=== PATIENT | female | born 1955 | race Caucasian/White ===

== ENCOUNTER → 2017-04-29 | Outpatient (CLI) | payer BC ==
[2017-04-29 12:12] LABS: ALT 115 U/L (9-52); AST 89 U/L (14-36); Alkaline Phosphatase 191 U/L (38-126); Anion Gap 9 mmol/L; Blood Urea Nitrogen 11 mg/dL (7-17); Calcium 10.3 mg/dL (8.4-10.2); Carbon Dioxide 24 mmol/L (22-30); Chloride 109 mmol/L (98-107); Glucose 106 mg/dL (74-99); Non-African American GFR(MDRD) >60 (>60 ml/min/1.73 sqM); Potassium 4.6 mmol/L (3.5-5.1); Sodium 142 mmol/L (137-145); Total Bilirubin 0.5 mg/dL (0.2-1.3); Total Protein 7.4 g/dL (6.3-8.2)
== END | disposition home or self-care (01) ==
LOC: LABWHC1 11:32
PROVIDERS: ATTEND Internal Medicine Endocrinology, Diabetes & Metabolism
DX: E21.0 Primary hyperparathyroidism (principal)
CPT/HCPCS: 36415; 80053; 82306; 83970; 84443

== ENCOUNTER → 2017-05-03 | Outpatient (CLI) | payer BC ==
--- NOTE | 2017-05-03 12:02 | US ---
EXAMINATION TYPE: US thyroid st tissue head/neck DATE OF EXAM: 05/03/2017 COMPARISON: NONE CLINICAL HISTORY: E21.0 HYPERPARATHYROIDISM. GLAND SIZE: Right Lobe: 4.3 x 1.7 x 1.8 cm Overall Parenchyma: homogenous Left Lobe: 4.7 x 1.9 x 1.7 cm Overall Parenchyma: heterogeneous Isthmus Thickness: 0.4 cm NODULES RIGHT: # of nodules measured on right: 2 1. 0.6 X 0.5 x 0.3 cm hypoechoic solid nodule at the upper pole with well-defined margins. This no dule is wider than tall and shows no intranodular vascularity. Prior size: no prior US 2. 0.7 X 0.5 x 0.3 cm hypoechoic solid nodule at the upper mid pole with well-defined margins. This nodule is wider than tall and shows no intranodular vascularity. LEFT: # of nodules measured on left: largest one of multiple 1. 1.3 X 1.0 x 0.8 cm hypoechoic solid nodule at the mid medial pole with poorly defined margins. This nodule is wider than tall and shows no intranodular vascularity. ISTHMUS: # of nodules measured in the isthmus: 0 Bilateral neck scanned, no evidence of lymphadenopathy. Possible parathyroid nodules noted right inferiorly = 0.8 x 0.5 x 0.5cm and at left seen inferiorly 0 .7 x 0.4 x 0.5cm. Thyroid gland is normal in size and heterogeneous in appearance. There are few small nodules scattere d throughout right thyroid lobe. There are several small nodules scattered throughout left thyroid lo be. There is a dominant somewhat ill-defined heterogeneous hypoechoic solid nodule posteriorly mid po le level left thyroid measuring 1.3 x 1.0 x 0.8 cm that is taller greater than wide. Technologist notes 2 subcentimeter round hypoechoic lesions inferior to thyroid gland could reflect b enign lymph nodes, too small to further characterize. IMPRESSION: There is heterogeneous nonenlarged thyroid with multiple small nodules, there is dominant ill-defined 1.3 cm hypoechoic solid nodule left thyroid lobe noted that may warrant further workup. No convincin g evidence for single parathyroid adenoma. Nonspecific subcentimeter nodules inferior to thyroid glan d. Consider nuclear medicine correlation.
== END | disposition home or self-care (01) ==
LOC: RADUSWWP 11:05
PROVIDERS: ATTEND Internal Medicine Endocrinology, Diabetes & Metabolism
DX: E04.2 Nontoxic multinodular goiter (principal); E21.0 Primary hyperparathyroidism
CPT/HCPCS: 76536

== ENCOUNTER → 2017-07-02 | Outpatient (CLI) | payer BC ==
[2017-07-02 13:24] LABS: ALT 59 U/L (9-52); AST 37 U/L (14-36); Alkaline Phosphatase 155 U/L (38-126); Anion Gap 10 mmol/L; Blood Urea Nitrogen 11 mg/dL (7-17); Calcium 9.9 mg/dL (8.4-10.2); Carbon Dioxide 26 mmol/L (22-30); Chloride 107 mmol/L (98-107); Glucose 96 mg/dL (74-99); Non-African American GFR(MDRD) >60 (>60 ml/min/1.73 sqM); Potassium 4.1 mmol/L (3.5-5.1); Sodium 143 mmol/L (137-145); Total Bilirubin 0.2 mg/dL (0.2-1.3)
== END | disposition home or self-care (01) ==
LOC: LABWHC1 12:16
PROVIDERS: ATTEND Internal Medicine Endocrinology, Diabetes & Metabolism
DX: E21.0 Primary hyperparathyroidism (principal)
CPT/HCPCS: 36415; 80053; 82306; 83970

== ENCOUNTER → 2018-05-18 | Outpatient (CLI) | payer BC | END | disposition home or self-care (01) | LOC: LABWHC1 16:11 | PROVIDERS: ATTEND Orthopaedic Surgery | DX: Z01.812 Encounter for preprocedural laboratory examination (principal) | CPT/HCPCS: 87070 ==

== ENCOUNTER → 2018-06-04 | Outpatient (CLI) | payer BC | END | disposition home or self-care (01) | LOC: LABWHC1 14:00 | PROVIDERS: ATTEND Orthopaedic Surgery | DX: Z01.812 Encounter for preprocedural laboratory examination (principal) | CPT/HCPCS: 36415; 86850; 86900; 86901 ==

== ENCOUNTER → 2018-06-06 | Outpatient (CLI) | payer BC ==
[2018-06-06 17:24] LABS: Appearance,Urine Clear (Clear); Bilirubin,Urine Negative (Negative); Blood,Urine Negative (Negative); Color,Urine Colorless; Glucose,Urine (UA) Negative (Negative); Ketones,Urine Negative (Negative); Leukocyte Esterase,Urine Negative (Negative); Nitrite,Urine Negative (Negative); PH, Urine 5.5 (5.0-8.0); Protein,Urine Negative (Negative); Specific Gravity,Urine 1.004 (1.001-1.035); Urobilinogen,Urine <2.0 mg/dL (<2.0)
[2018-06-06 17:27] LABS: HCT 38.4 % (34.0-46.0); HGB 13.1 gm/dL (11.4-16.0); MCH 30.3 pg (25.0-35.0); MCHC 34.1 g/dL (31.0-37.0); MCV 88.9 fL (80.0-100.0); Mean Platelet Volume 8.3; Platelet Count 246 k/uL (150-450); RBC 4.32 m/uL (3.80-5.40); RDW 13.4 % (11.5-15.5); WBC 8.4 k/uL (3.8-10.6)
[2018-06-06 17:39] LABS: Partial Thromboplastin Time 22.9 sec (22.0-30.0); Prothrombin Time 9.9 sec (9.0-12.0)
[2018-06-06 17:44] LABS: ALT 60 U/L (9-52); AST 43 U/L (14-36); Albumin 4.2 g/dL (3.5-5.0); Alkaline Phosphatase 163 U/L (38-126); Anion Gap 14 mmol/L; Blood Urea Nitrogen 11 mg/dL (7-17); Calcium 10.6 mg/dL (8.4-10.2); Carbon Dioxide 24 mmol/L (22-30); Chloride 105 mmol/L (98-107); Glucose 111 mg/dL (74-99); Potassium 3.8 mmol/L (3.5-5.1); Sodium 143 mmol/L (137-145); Total Bilirubin 0.2 mg/dL (0.2-1.3); Total Protein 6.8 g/dL (6.3-8.2)
== END | disposition home or self-care (01) ==
LOC: LABPAT 06-04 09:53
PROVIDERS: ATTEND Orthopaedic Surgery
DX: Z01.812 Encounter for preprocedural laboratory examination (principal)
CPT/HCPCS: 80053; 81003; 85027; 85610; 85730

== ENCOUNTER 2018-06-14 07:55 | Inpatient (IN) | payer BC ==
[2018-06-06 15:26] VITALS: BMI 39.3
[~2018-06-14 07:55] MED LIST: ACETAMINOPHEN TAB 500 MG TAB PO ONE; DEXAMETHASONE SOD PHOSPHATE 10 MG/ML 1 ML VIAL IV ONE; MELOXICAM 7.5 MG TAB PO ONE; MIDAZOLAM 2 MG/2 ML VIAL IV PRN; ONDANSETRON 4 MG/2 ML VIAL IVP ONE; ROPIVACAINE 246.25 MG, EPINEPHrine 0.5 MG, KETOROLAC 30 MG, cloNIDine HCL/PF 80 MCG, WA... MISCELLANE ONE; TRANEXAMIC ACID 1,000 MG in SODIUM CHLORIDE 0.9% 50 ML IVPB ONE; ceFAZolin IN SWFI 2 GM/20 ML SYRINGE IVP ONE; fentaNYL (PF) 50 MCG/ML 2 ML AMP IV PRN
[2018-06-14] MEDS: LACTATED RINGERS 1,000 ML IV SCH ×2 (08:44→21:06)
[2018-06-14] MEDS ORDERED: LIDOCAINE 1% 20 ML VIAL (10MG/ML) FOR IV START INTRADERMA ONE (08:46)
[2018-06-14] MEDS ORDERED: SCOPOLAMINE 1.5MG/72HR PATCH TRANSDERM ONE (08:58)
[2018-06-14] MEDS ORDERED: HYDROmorphone 1 MG/ML 1 ML SYRINGE IVP PRN (09:16)
[2018-06-14] MEDS ORDERED: NALOXONE 0.4 MG/ML 1 ML VIAL IV PRN (09:16)
[2018-06-14] MEDS ORDERED: DIAZEPAM 5 MG TAB PO PRN ×2 (09:16)
[2018-06-14] MEDS ORDERED: MAGNESIUM HYDROXIDE 2,400 MG/10 ML CUP PO PRN (09:16)
[2018-06-14] MEDS ORDERED: HYDROmorphone 0.5 MG/0.5 ML SYRINGE IVP PRN ×2 (09:16)
[2018-06-14] MEDS ORDERED: ONDANSETRON 4 MG/2 ML VIAL IVP PRN (09:16)
[2018-06-14] MEDS ORDERED: hydrOXYzine PAMOATE 25 MG CAP PO PRN (09:16)
[2018-06-14] MEDS ORDERED: HYDROcodone/APAP 5-325MG 1 EACH TAB PO PRN ×2 (09:16)
[2018-06-14] MEDS ORDERED: HEPARIN SODIUM,PORCINE 10,000 UNIT/ML 1 ML VIAL ONE (09:54)
[2018-06-14] MEDS ORDERED: SODIUM CHLORIDE 0.9% IRRIG 1,000 ML BTL IRRIGATION ONE (09:54)
[2018-06-14] MEDS ORDERED: ceFAZolin 3,000 MG in SODIUM CHLORIDE 0.9% IRRIGATIO 3,000 ML IRRIGATION ONE (10:33)
[2018-06-14] MEDS ORDERED: LACTATED RINGERS 1,000 ML IV ONE ×3 (11:10→15:30)
--- NOTE | 2018-06-14 11:51 | P.OP ---
Date of Procedure: 06/14/18 Preoperative Diagnosis: Severe osteoarthritis left hip Postoperative Diagnosis: Severe osteoarthritis left hip Procedure(s) Performed: Left total hip arthroplasty with a direct anterior approach Implants: Dewitt and nephew Polarstem size 2 standard Dewitt [employer] Nephew R3, 3 hole acetabular shell, 48 mm [employer]itt [employer]hew reflection 6.5 mm cancellus screw, 20 mm 2 Dewitt [employer]hew R3, XLPE 20 acetabular liner Dewitt [employer] Nephew Oxinium femoral head 32 m, -3 All components were press-fit. The articulation is Oxinium on polyethylene. Anesthesia: GETA, spinal Surgeon: Edmond Frederick Carpet Sewing Machine Operator #1: Danna Platt Estimated Blood Loss (ml): 200 (67 mL returned with Cell Saver) Pathology: other (Femoral head) Condition: stable Disposition: PACU Indications for Procedure: After failure of conservative treatment we discussed the surgical and nonsurgical treatment options at length. Patient wishes to proceed with a total hip arthroplasty with a direct anterior approach. Complications specific to this procedure were discussed at length, including but not limited to infection, leg length discrepancy, dislocation, and nerve injury. Patient is aware of all these complications and informed consent was obtained Operative Findings: The operative findings are consistent with severe osteoarthritis of the left hip Description of Procedure: Patient was seen and evaluated in the preoperative area, consent was reviewed, and the surgical site was marked with a skin marker. Patient was then brought to the operating room and given prophylactic antibiotics intravenously. 1 g of Tranexamic acid was also given. A spinal anesthetic was administered by the anesthesia department. The patient was then placed on the Wheeler table with the bony prominences well-padded. The hip area was then prepped and draped in usual sterile fashion. A universal timeout was then performed, which confirmed the patient's name, surgical site, ALLERGIES, and procedure being performed. Next the incision site was located at 1 cm distal and 1 cm lateral to the anterior superior iliac spine. At this time the patient was able to feel the incision, so a general anesthetic was then given. The skin and subcutaneous tissues were sharply incised. Incision was carefully dissected down to the fascia overlying the tensor fascia nito muscle. This fascia was then incised in line with the incision. Next, using blunt finger dissection, the tensor fascia nito muscle was dissected off its investing fascia. The muscle was then carefully retracted laterally with a cobra retractor over the lateral neck of the femur. Next, the circumflex vessels were identified and cauterized using the AquaMantis device. The anterior hip capsule was then exposed. The capsule was then opened and an inverted T fashion. Cobra retractors were then placed intracapsularly. The proximal femur was then visualized. The femoral neck was then osteotomized appropriate level above the lesser trochanter. Small amount of traction was placed with the Wheeler table. A small wedge of bone was then removed from the remaining femoral head. Next, using a corkscrew femoral head was easily removed from the acetabulum. On gross visual inspection, the femoral head had complete loss of articular cartilage in multiple periarticular osteophytes. Attention was then turned to the acetabulum. the acetabulum was exposed and any remaining labrum was excised. Sequential reaming of the acetabulum was performed using fluoroscopic guidance. When the appropriate size was reached, a trial was then placed. The position and fit of the trial was checked with fluoroscopy. The trial was then removed. Then, using fluoroscopic guidance, the final implant was impacted at 20 of anteversion and 40 of abduction, and fully seated in the acetabulum. 2 screws were then placed in the acetabulum. Again fluoroscopy was used to check position of the screws. Next, the liner was then impacted, with a 20 elevated liner located in the anterior superior quadrant. Component locking was confirmed. Attention was then directed to the femur. With the aid of the Wheeler table, the femur was externally rotated to approximately 130, extended, and abducted under the opposite leg. A side hook was then placed under the proximal femur, and the side hook elevator was used to elevate the proximal femur. Retractors were then placed. A capsular release was performed, as well as a release of the conjoined tendon, which afforded excellent visualization of the proximal femur. Next, a box osteotome was used to lateralize the proximal femur. A hand shaker was then used to locate the femoral canal. Sequential broaching was then performed with appropriate size which afforded excellent fixation in the proximal femur. A trial was then placed with appropriate head and neck, and the hip was gently reduced with the aid of the Wheeler table. Fluoroscopy was then used to check position of the components, as well as to ensure equal leg lengths. The hip was then gently dislocated and the trials were then removed. Final implants were then impacted and the hip was again reduced. Final fluoroscopic x-rays confirmed that the components were in anatomic position, as well as equal leg lengths. The hip was also taken through range of motion, and found to be stable. The hip was then copiously irrigated with antibiotic solution with pulsatile lavage. The hip was then irrigated with Irrisept solution. The soft tissues were then injected with a ropivacaine solution, which consisted of 246.25 mg of ropivacaine, 0.5 mg of epinephrine, 30 mg of Toradol, 80 g of clonidine, and 48.45 mL of sterile water, for a total of 100 mL of fluid injected. A second dose of 1 g of Tranexamic acid was also given. the fascia was then closed with 2-0 strata fix suture. The subcutaneous tissue was closed with 3-0 Vicryl. The subcuticular tissue was closed with 3-0 strata fix suture. The skin was then closed with Dermabond glue and a sterile silver dressing. The patient was then transferred to the recovery room in stable condition. The promotions assistant FABI Benson was required due to the complexity of surgery, and the need for skilled surgical elastic knitter hand frame for positioning, draping, exposure, retraction, and closure of the wound.
--- NOTE | 2018-06-14 11:57 | FL ---
EXAMINATION TYPE: FL guidance operating room, XR Hip Limited LT DATE OF EXAM: 06/14/2018 CLINICAL HISTORY: Left hip replacement. TECHNIQUE: Fluoroscopy. Intraoperative limited views left hip. COMPARISON: None. FINDINGS: Fluoroscopic guidance was provided during left hip replacement procedure performed by Dr. Frederick. A total of 59 seconds of fluoroscopic time was utilized during the procedure and 2 spot in traoperative images are acquired. Images acquired show metallic hardware from hip arthroplasty that is satisfactory in position on sing le frontal projection. IMPRESSION: As Above.
[2018-06-14] MEDS: HYDROmorphone 1 MG/ML 1 ML SYRINGE IVP ONE ×4 (12:05→12:58)
--- NOTE | 2018-06-14 12:23 | XR ---
Left hip HISTORY: Status post left hip arthroplasty Single frontal view of the left hip Patient is status post left hip arthroplasty. There is anatomic alignment. IMPRESSION: Orthopedic follow-up.
[2018-06-14] MEDS ORDERED: MEPERIDINE 50 MG/ML SYRINGE IVP ONE (13:46)
[2018-06-14] MEDS ORDERED: HYDROmorphone 1 MG/ML 1 ML SYRINGE IVP ONE (15:40)
[2018-06-14] MEDS: SODIUM CHLORIDE 0.9% 1,000 ML IV SCH (16:50)
[2018-06-14] MEDS: ceFAZolin IN SWFI 2 GM/20 ML SYRINGE IVP SCH (17:46)
--- NOTE | 2018-06-14 20:17 | CONS ---
CONSULTATION DATE OF SERVICE: 06/14/2018. REASON FOR CONSULTATION: Advice regarding hyperlipidemia and other medical issues requested by Dr. Frederick. HISTORY OF PRESENT ILLNESS: This 62-year-old woman with a past history of GERD, hyperlipidemia, DJD, history of bariatric surgery, cholecystectomy, cystectomy, who underwent left hip arthroplasty, is being closely monitored. There is no history of fever, rigors. No headache, loss of consciousness or seizures. The patient also has history of lap band removal, bunionectomy and EGD also. PAST MEDICAL HISTORY: GERD, hyperlipidemia, DJD, history of lap band surgery. MEDICATIONS: Home medications are: 1. Trazodone 150 mg p.o. daily. 2. Effexor 75 mg p.o. daily. 3. Omeprazole 40 mg p.o. b.i.d. 4. [place]-3 fatty acids. 5. Multivitamins. 6. Lovastatin 20 mg q.h.s. 7. Ibuprofen 800 mg t.i.d. 8. Vitamin B12 500 mcg p.o. daily. 9. Aspirin 81 mg p.o. daily. ALLERGIES: None. FAMILY HISTORY: History of cancer in the family. SOCIAL HISTORY: No history of smoking, no history of alcohol. REVIEW OF SYSTEMS: ENT: No diminished hearing or vision. CARDIOVASCULAR: No angina. RESPIRATORY: No cough or hemoptysis. GI: No nausea, vomiting. : No dysuria. NERVOUS SYSTEM: No numbness or weakness. ALLERGY/IMMUNOLOGY: No asthma. MUSCULOSKELETAL: As mentioned earlier. HEMATOLOGY/ONCOLOGY: No history of anemia. ENDOCRINE: No history of diabetes or hypothyroidism. CONSTITUTIONAL: As mentioned. DERMATOLOGY: Negative. RHEUMATOLOGY: Negative. PSYCHIATRY: As mentioned earlier. PHYSICAL EXAMINATION: Alert, oriented x3. Pulse 80, blood pressure 92, respiratory 16, temperature 98.2, pulse ox 94% on room air. HEENT: Conjunctivae normal. NECK: No jugular venous distention. No carotid bruit. No lymph node enlargement. CARDIOVASCULAR: S1, S2. RESPIRATORY: Breath sounds diminished in the bases. No rhonchi, no crackles. ABDOMEN: Soft, nontender. No mass palpable. LEGS: No edema, no swelling. Status post surgery. NERVOUS SYSTEM: Higher function mentioned earlier. Moves all four limbs. No focal motor deficits. LYMPHATICS: No lymphadenopathy in the neck, axillae, groin. SKIN: No ulcer, rash, bleeding. LAB INVESTIGATIONS: Not available at this time. ASSESSMENT: 1. Status post left total hip joint arthroplasty. 2. History of hyperlipidemia. 3. Degenerative joint disease. 4. Gastroesophageal reflux disease. 5. History of bariatric surgery. 6. History of bunionectomy. 7. History of depression. RECOMMENDATION: This 62-year-old woman who presented after surgery at this time I would recommend continue the current medications, home medications, DVT prophylaxis, incentive spirometry and recommend close follow up with the primary physician in the outpatient setting. Aspirin may be restarted. Hold ibuprofen and will follow the patient closely with you. Thank you, Dr. Frederick, for letting us participate in this patient. The patient is started on aspirin for DVT prophylaxis per Orthopedic Surgery. MMODL / IJN: [id number] /
[2018-06-14] MEDS ORDERED: ATORVASTATIN 10 MG TAB PO SCH (21:00)
[2018-06-14] MEDS ORDERED: SENNOSIDES-DOCUSATE SODIUM 1 EACH TAB PO SCH (21:00)
[2018-06-14] MEDS: ASPIRIN 325 MG TAB PO SCH (21:09)
[2018-06-14] MEDS: PANTOPRAZOLE 40 MG TABLET PO SCH (21:09)
[2018-06-15] MEDS ORDERED: HYDROcodone/APAP 5-325MG 1 EACH TAB ONE (01:31)
[2018-06-15] MEDS: ceFAZolin IN SWFI 2 GM/20 ML SYRINGE IVP SCH (04:15)
[2018-06-15] MEDS: SODIUM CHLORIDE 0.9% 1,000 ML IV SCH (04:15)
[2018-06-15 04:41] VITALS: BP 120/59; PULSE 98; RESP 16; TEMP 98.4
[2018-06-15 07:15] LABS: Basophils % (A) 0 %; Eosinophils # (A) 0.1 k/uL (0-0.7); Eosinophils % (A) 1 %; HCT 32.4 % (34.0-46.0); HGB 10.3 gm/dL (11.4-16.0); Lymphocytes # (A) 2.5 k/uL (1.0-4.8); Lymphocytes % (A) 30 %; MCH 29.3 pg (25.0-35.0); MCHC 31.8 g/dL (31.0-37.0); Monocytes # (A) 0.7 k/uL (0-1.0); Monocytes % (A) 9 %; Neutrophils # (A) 4.9 k/uL (1.3-7.7); Neutrophils % (A) 60 %; Platelet Count 208 k/uL (150-450); RBC 3.52 m/uL (3.80-5.40); RDW 13.4 % (11.5-15.5); WBC 8.3 k/uL (3.8-10.6)
--- NOTE | 2018-06-15 08:22 | P.DS ---
Providers Date of admission: 06/14/18 07:55 Expected date of discharge: 06/15/18 Attending physician: Edmond Frederick Consults: 06/14/18 09:16 Consult Physician Routine Consulting Provider: Vikas Vargas Consult Reason/Comments: medical management Do you want consulting provider notified?: Yes 06/14/18 16:45 Consult Physician Routine Consulting Provider: Dao Diana Consult Reason/Comments: medical managment Do you want consulting provider notified?: Yes Primary care physician: Vikas Vargas - Discharge Diagnosis(es) (1) Primary osteoarthritis of left hip Current Visit: Yes Status: Acute (2) S/P total hip arthroplasty Current Visit: Yes Status: Acute Hospital Course: This is a 62-year-old female with known history of degenerative arthritis of the left hip. The patient presents for evaluation. After discussion and consideration patient elects to proceed with total hip arthroplasty. The patient is seen preoperatively by Dr. Frederick and medically cleared for surgery by their primary care physician. Patient is admitted to [facility] on 06/14/2018 for total hip arthroplasty. The procedures performed without complication or sequelae. The patient is doing well postoperatively. Labs and vital signs are stable on day of discharge. On day of discharge patient's hip incision is healing well. There is minimal erythema. There is no drainage noted at this time. There is minimal soft tissue swelling to the hip and thigh. Patient has full foot and ankle motion without difficulty or pain. Neurovascular status to the left lower extremity is intact. Patient is discharged home in good condition. Please see med rec for accurate list of home medications. Plan - Discharge Summary Discharge Rx Participant: No New Discharge Prescriptions: New Aspirin 325 mg PO BID #60 tab HYDROcodone/APAP 5-325MG [[place] 5-325] 1 - 2 tab PO Q4-6H PRN #45 tab PRN Reason: Pain Ibuprofen [Motrin] 1 tab PO Q8H PRN #90 tab PRN Reason: Pain Sennosides [Senokot] 1 tab PO BID #60 tablet No Action Multivitamins, Thera [Multivitamin] 1 tab PO DAILY Cyanocobalamin [Vitamin B-12] 500 mcg PO DAILY Lovastatin [Mevacor] 20 mg PO HS traZODone HCL 150 mg PO DAILY [place]-3 Fatty Acids/Fish Oil [Fish Oil 1,000 mg Softgel] 1 cap PO DAILY Aspirin [Adult Low Dose Aspirin EC] 81 mg PO DAILY Ibuprofen 800 mg PO TID Omeprazole 40 mg PO BID Venlafaxine HCl [Effexor XR] 75 mg PO DAILY Discharge Medication List Aspirin [Adult Low Dose Aspirin EC] 81 mg PO DAILY 04/22/16 [History] Cyanocobalamin [Vitamin B-12] 500 mcg PO DAILY 04/22/16 [History] Lovastatin [Mevacor] 20 mg PO HS 04/22/16 [History] Multivitamins, Thera [Multivitamin] 1 tab PO DAILY 04/22/16 [History] [place]-3 Fatty Acids/Fish Oil [Fish Oil 1,000 mg Softgel] 1 cap PO DAILY [History] traZODone HCL 150 mg PO DAILY 04/22/16 [History] Ibuprofen 800 mg PO TID 06/06/18 [History] Omeprazole 40 mg PO BID 06/06/18 [History] Venlafaxine HCl [Effexor XR] 75 mg PO DAILY 06/14/18 [History] Aspirin 325 mg PO BID #60 tab 06/15/18 [Rx] HYDROcodone/APAP 5-325MG [[place] 5-325] 1 - 2 tab PO Q4-6H PRN #45 tab 06/15/18 [ Rx] Ibuprofen [Motrin] 1 tab PO Q8H PRN #90 tab 06/15/18 [Rx] Sennosides [Senokot] 1 tab PO BID #60 tablet 06/15/18 [Rx] Follow up Appointment(s)/Referral(s): Edmond Frederick DO [Doctor of Osteopathic Medicine] - 2 Weeks Activity/Diet/Wound Care/Special Instructions: Weightbearing as tolerated with walker Leave dressing intact. Dressing may be removed by home care nurse in 10 days. May shower with dressing on. Follow-up with [facility] in 2 weeks, please call with any questions or concerns [phone]
[2018-06-15] MEDS: ASPIRIN 325 MG TAB PO SCH (08:46)
[2018-06-15] MEDS: PANTOPRAZOLE 40 MG TABLET PO SCH (08:46)
[2018-06-15] MEDS ORDERED: MELOXICAM 7.5 MG TAB PO SCH (09:00)
[2018-06-15] MEDS ORDERED: VENLAFAXINE HCL ER 75 MG CAP PO SCH (09:00)
[2018-06-15] MEDS ORDERED: traZODone HCL 50 MG TAB PO SCH (09:00)
[2018-06-15] MEDS ORDERED: MULTIVITAMINS, THERA 1 EACH TAB PO SCH (12:00)
[2018-06-15] MEDS ORDERED: CYANOCOBALAMIN 500 MCG TAB PO SCH (12:00)
== END 2018-06-15 10:17 | disposition home health service (06) | DRG 470 ==
LOC: 2ORMAIN 07:55 → 3SUR 11:50
PROVIDERS: ADMIT Orthopaedic Surgery; ATTEND Orthopaedic Surgery
PROC: 30233N0 Transfusion of Autologous Red Blood Cells into Peripheral Vein, Percutaneous Approach (ICD-10-PCS; 2018-06-14)
PROC: 0SRB06A Replacement of Left Hip Joint with Oxidized Zirconium on Polyethylene Synthetic Substitute, Uncemented, Open Approach (ICD-10-PCS; principal; 2018-06-14 09:20)
DX: M16.12 Unilateral primary osteoarthritis, left hip (principal); E78.5 Hyperlipidemia, unspecified; K21.9 Gastro-esophageal reflux disease without esophagitis; F32.9 Major depressive disorder, single episode, unspecified; K44.9 Diaphragmatic hernia without obstruction or gangrene; F41.9 Anxiety disorder, unspecified; Z79.899 Other long term (current) drug therapy; Z79.82 Long term (current) use of aspirin; Z90.49 Acquired absence of other specified parts of digestive tract; Z98.84 Bariatric surgery status; Z90.6 Acquired absence of other parts of urinary tract; Z80.9 Family history of malignant neoplasm, unspecified
CPT/HCPCS: 36415; 73501; 85025; 86850; 86891; 86900; 86901; 88300

== ENCOUNTER → 2019-05-12 | Outpatient (CLI) | payer MEDICARE, OTHER ==
--- NOTE | 2019-05-12 10:05 | US ---
EXAMINATION TYPE: US thyroid st tissue head/neck DATE OF EXAM: 05/12/2019 COMPARISON: 05/03/2017 CLINICAL HISTORY: E21.0 Primary hyperparathyroidism. GLAND SIZE: Right Lobe: 4.6 X 2.2 X 1.9 cm Overall Parenchyma: homogenous Left Lobe: 4.8 X 1.7 X 1.9 cm Overall Parenchyma: homogeneous Isthmus Thickness: 0.3 cm NODULES RIGHT: # of nodules measured on right: 1 1. 0.6 X 0.4 x 0.5 cm hypoechoic cystic nodule at the upper pole with well-defined margins; . This nodule is wider than tall and shows . Prior size: 0.6 x 0.5 x 0.3 cm LEFT: # of nodules measured on left: 3 1. 0.5 X 0.3 x 0.6 cm hypoechoic mixed nodule at the upper pole with well-defined margins; . This nodule is wider than tall and shows no intranodular vascularity. Prior size: No prior measurement although subtle nodules are seen in the left on the prior exam. 2. 0.4 X 0.2 x 0.4 cm hypoechoic solid nodule at the mid pole with well-defined margins; . This nod ule is wider than tall and shows intranodular vascularity. Prior size: No prior measurement although subtle nodules are seen in the left on the prior exam. 3. 0.5 X 0.4 x 0.6 cm hypoechoic solid nodule at the mid pole with well-defined margins; . This nod ule is wider than tall and shows intranodular vascularity. Prior size: No prior measurement although subtle nodules are seen in the left on the prior exam. The ill-defined 1.3 cm thyroid nodule on the exam of 05/03/2017 does not persist on today's exam. ISTHMUS: # of nodules measured in the isthmus: 0 Bilateral neck scanned, no evidence of lymphadenopathy. IMPRESSION: Similar size of the right subcentimeter thyroid nodule with multiple left thyroid nodules retrospecti vely seen on the prior exam and currently subcentimeter in size. The prior 1.3 cm ill-defined nodule on the left on the exam of 05/03/2017 does not persist on today's exam.
== END ==
LOC: RADUSWWP 08:59
PROVIDERS: ATTEND Internal Medicine Endocrinology, Diabetes & Metabolism
DX: E04.2 Nontoxic multinodular goiter (principal)
CPT/HCPCS: 76536

== ENCOUNTER → 2020-05-10 | Outpatient (CLI) | payer MEDICARE, OTHER ==
--- NOTE | 2020-05-10 13:43 | MR ---
EXAMINATION TYPE: MR knee LT wo con DATE OF EXAM: 05/10/2020 COMPARISON: None HISTORY: Left Knee Pain, Pain behind the Knee and Around Kneecap TECHNIQUE: Multiplanar, multisequence imaging of the left knee is performed without IV contrast. FINDINGS: MEDIAL MENISCUS: Anterior and posterior horns are intact without tear. LATERAL MENISCUS: Anterior and posterior horns are intact without tear. CRUCIATE LIGAMENTS: The anterior and posterior cruciate ligaments are intact and unremarkable. COLLATERAL LIGAMENTS: The medial collateral ligament and lateral collateral ligament complex are inta ct and unremarkable. EXTENSOR MECHANISM: Visualized quadriceps and patellar tendons are intact. EFFUSION: Minimal joint effusion. POPLITEAL CYST: No popliteal/luna cyst. TRICOMPARTMENT SPACES: Joint space loss is present at the patellofemoral joint. CARTILAGE: Grade IV chondromalacia present at the posterior patella. There is subchondral geode forma tion present at the posterior aspect of the lateral compartment and also at the tibiofibular joint barajas ggesting underlying arthropathy BONE MARROW SIGNAL: There is abnormal increased signal on T2-weighted sequences, low signal on T1-josemanuel ghted sequences extending along the medial metaphysis of the proximal tibia extending laterally, line ar low signal is present in this region consistent with nondisplaced fracture lines, there is likely microtrabecular fracture present. Associated edema. OTHER: No additional significant abnormality is appreciated. IMPRESSION: Nondisplaced fracture suspected along the proximal tibia medially. Chondromalacia patella. No evident meniscal tear
== END | disposition home or self-care (01) ==
LOC: RADMRIMAIN 07:34
PROVIDERS: ATTEND Orthopaedic Surgery
DX: M22.42 Chondromalacia patellae, left knee (principal)

== ENCOUNTER → 2020-07-04 | Outpatient (CLI) | payer MEDICARE, OTHER ==
--- NOTE | 2020-07-08 09:53 | MM ---
Reason for exam: screening (asymptomatic). History: Patient is postmenopausal and is nulliparous. Retro-pectoral saline implants in both breasts, 2012. Took estrogen for 2 years. Took progesterone for 2 years. Physical Findings: A clinical breast exam by your physician is recommended on an annual basis and results should be correlated with mammographic findings. MG 3D Screen Mammo Imp/Cad Bilateral CC, MLO, and ID view(s) were taken. Prior study comparison: October 11, 2018, mammogram, performed at [facility]. July 06, 2016, mammogram, performed at [facility]. The breast tissue is heterogeneously dense. This may lower the sensitivity of mammography. There is chronic nodularity bilaterally. Deformity right breast implant. Correlate for implant injury. ASSESSMENT: Incomplete: need additional imaging evaluation, BI-RAD 0 RECOMMENDATION: Special view mammogram of the left breast. If lesion persists on supplemental views, image directed ultrasound is recommended. [facility] will attempt to contact patient to return for supplemental views and ultrasound if indicated.
== END | disposition home or self-care (01) ==
LOC: RADMAMWWP 13:00
PROVIDERS: ATTEND Obstetrics & Gynecology
DX: Z12.31 Encounter for screening mammogram for malignant neoplasm of breast (principal)
CPT/HCPCS: 77063; 77067

== ENCOUNTER → 2020-07-19 | Outpatient (CLI) | payer MEDICARE, OTHER ==
--- NOTE | 2020-07-19 10:49 | MM ---
Reason for exam: additional evaluation requested from abnormal screening. Last mammogram was performed less than 1 month ago. History: Patient is postmenopausal and is nulliparous. Retro-pectoral saline implants in both breasts, 2012. Took estrogen for 2 years. Took progesterone for 2 years. Physical Findings: Nurse did not find any significant physical abnormalities on exam. MG 3D Work Up W/Cad W/Imp LT CC with magnification, ML with magnification, and ML view(s) were taken of the left breast. Prior study comparison: July 04, 2020, bilateral MG 3d screen mammo imp/cad. October 11, 2018, mammogram, performed at [facility]. The breast tissue is heterogeneously dense. This may lower the sensitivity of mammography. Finding: There are indeterminate calcifications in the upper quadrant, posterior, central position of the left breast. These results were verbally communicated with the patient and result sheet given to the patient on 07/19/20. ASSESSMENT: Suspicious, BI-RAD 4 RECOMMENDATION: Stereotactic core biopsy of the left breast. Called Dr. Wylie's office with mammographic findings and has scheduled an appointment for the patient for 08/29/20 at 8:[address] Esparza. Biopsy scheduled for 08/09/20 at 10:00. PRELIMINARY REPORT CALLED AND FAXED TO DR. ESPARZA ON 07/19/20.
== END | disposition home or self-care (01) ==
LOC: RADMAMWWP 09:09
PROVIDERS: ATTEND Obstetrics & Gynecology
DX: R92.8 Other abnormal and inconclusive findings on diagnostic imaging of breast (principal)
CPT/HCPCS: 77065; G0279; 77061; 77066

== ENCOUNTER → 2020-08-09 | Day surgery (SDC) | payer MEDICARE, OTHER ==
[2020-08-09 09:29] VITALS: RESP 16; TEMP 97.7
[2020-08-09 11:43] VITALS: BP 133/81; PULSE 64
--- NOTE | 2020-08-09 15:17 | MM ---
EXAMINATION TYPE: MG stereo VAD BX LT DATE OF EXAM: 08/09/2020 COMPARISON: Prior mammogram 07/19/2020 CLINICAL HISTORY: Abnormal mammogram TECHNIQUE: Stereotactic guided core biopsy of left breast. FINDINGS: The procedure of stereotactic guided core biopsy was explained to the patient. Benefits, alternatives, and risks were discussed. An informed consent was then obtained. The shortness pathway for biopsy was chosen. Shortness pathway was superior to inferior approach. I performed the procedure. A vacuum assisted biopsy gun was used to obtain multiple core samples. The patient tolerated the procedure well without any immediate complication. The patient was kept in the radiology department for short stay after the procedure and then discharged home in stable condition. Targeted calcifications are identified in specimen mammogram. Post biopsy digital mammogram shows the clip to appear in satisfactory position relative to the targeted area of concern on the preprocedure images. IMPRESSION: SUCCESSFUL, UNCOMPLICATED STEREOTACTIC GUIDED CORE BIOPSY OF AREA OF CONCERN IN THE left BREAST, FULL PATHOLOGY RESULTS TO FOLLOW. Pathology Results: Benign LEFT BREAST, NEEDLE CORE BIOPSY: Sclerotic breast parenchyma with focal intraductal calcifications and some features of senescent fibroadenoma. Recommendation Follow up mammogram of the left breast in 6 months. LORNA
== END ==
LOC: RADMAMWWP 09:11
PROVIDERS: ATTEND Surgery
DX: D24.2 Benign neoplasm of left breast (principal)
CPT/HCPCS: 88305; 19081; A4648; J2001

== ENCOUNTER → 2020-12-23 | Outpatient (CLI) | payer MEDICARE, OTHER ==
--- NOTE | 2020-12-23 14:14 | CT ---
EXAMINATION TYPE: CT ankle LT wo con DATE OF EXAM: 12/23/2020 COMPARISON: None HISTORY: Left foot and ankle pain. CT DLP: 198.[address] of the left ankle with reconstruction imaging. TECHNIQUE: Unenhanced CT of the left ankle was performed with bone and soft tissue window settings barajas bmitted in the axial coronal and sagittal planes. At a separate workstation 3-D TR imaging was obtai vadim. FINDINGS: I do not see evidence for fracture or dislocation. Tibiotalar joint space narrowing noted with mild early subchondral cyst formation medial portion of the talus. Visualized ligamentous and te ndinous structures are intact. Mild cystic degenerative changes of the midfoot. IMPRESSION: 1. Mild osteoarthritis tibiotalar joint space.
== END | disposition home or self-care (01) ==
LOC: RADCTMAIN 13:25
PROVIDERS: ATTEND Podiatrist
DX: M19.072 Primary osteoarthritis, left ankle and foot (principal)

== ENCOUNTER → 2021-03-24 | Outpatient (CLI) | payer MEDICARE, OTHER ==
--- NOTE | 2021-03-24 11:40 | BD ---
EXAMINATION TYPE: Axial Bone Density DATE OF EXAM: 03/24/2021 COMPARISON: NONE CLINICAL HISTORY: 65 YR OLD FEMALE.....ICD-10 CODE: M85.9 OSTEOPENIA Height: 61.8 Weight: 196 FRAX RISK QUESTIONS: History of Fracture in Adulthood: YES 5. Chronic liver disease: FATTY LIVER RISK FACTORS HISTORY OF: RT ELBOW, LAST YR History of Wrist Fracture: RT WRIST, LAST YR Surgery to ...LT HIP...THR 2018 Diet low in dairy products/other sources of calcium: YES Postmenopausal woman: YES, AT AGE 45 YRS OLD Take estrogen and/or progesterone medications: YES IN THE PAST FOR ABOUT 1 YR Hyperparathyroidism: YES, CACLIUM LEVELS ARE OFF Adrenal Insufficiency: NO MEDICATIONS: Additional Medications: VENLAFAXINE, TRAZONE, REFLUX MEDS, STATIN FOR CHOLESTEROL, VIT D Additional History: CALCIUM LEVELS HIGH, REFLUX, CALCIUM.... EXAM MEASUREMENTS: Bone mineral densitometry was performed using the [employer] System. Bone mineral density as measured about the Lumbar spine is: ----- L1-L4(G/cm2): 1.100 T Score Values are as follows: ----- L1: -0.9 ----- L2: -1.5 ----- L3: -0.2 ----- L4: -0.2 ----- L1-L4: -0.7 Bone mineral density FIRST BONE DENSITY AT MCP Bone mineral density about the R hip (g/cm2): 0.960 T Score values are as follows: -----R Neck: -1.1 -----R Total: -0.8 Bone mineral density FIRST BONE DENSITY AT [facility] RAX%s: THERE IS A 12.9% CHANCE FOR A MAJOR OSTEOPOROTIC FX AND A 1.1% FOR HIP......PROBABILITY FOR FX IN 10 YRS TIME IMPRESSION: Osteopenia NOTE: T-SCORE=SD OF THE YOUNG ADULT MEAN.
== END | disposition home or self-care (01) ==
LOC: RADBDWWP 09:17
PROVIDERS: ATTEND Obstetrics & Gynecology
DX: M85.80 Other specified disorders of bone density and structure, unspecified site (principal)
CPT/HCPCS: 77080

== ENCOUNTER → 2021-03-24 | Outpatient (CLI) | payer MEDICARE, OTHER ==
--- NOTE | 2021-03-24 10:40 | MM ---
Reason for exam: follow-up at short interval from prior study. Last mammogram was performed 8 months ago. History: Patient is postmenopausal and is nulliparous. Benign MG stereo VAD BX LT of the left breast, August 09, 2020. Retro-pectoral saline implants in both breasts, 2011. Took estrogen for 2 years. Took progesterone for 2 years. Physical Findings: Nurse did not find any significant physical abnormalities on exam. MG 3D Diag Mammo Imp W/Cad LT CC, MLO, and ID view(s) were taken of the left breast. Prior study comparison: July 19, 2020, left breast MG work up alen w/imp w/CAD L. July 04, 2020, bilateral MG 3d screen mammo imp/cad. The breast tissue is heterogeneously dense. This may lower the sensitivity of mammography. Previous mammotome biopsy in the left breast. Breast implant intact. No significant new findings when compared with previous films. These results were verbally communicated with the patient and result sheet given to the patient on 03/24/21. ASSESSMENT: Benign, BI-RAD 2 RECOMMENDATION: Return to routine screening mammogram schedule for both breasts. Back on schedule.
== END | disposition home or self-care (01) ==
LOC: RADMAMWWP 09:15
PROVIDERS: ATTEND Surgery
DX: R92.8 Other abnormal and inconclusive findings on diagnostic imaging of breast (principal)
CPT/HCPCS: 77065; G0279; 77061

== ENCOUNTER → 2021-06-17 | Outpatient (CLI) | payer MEDICARE, OTHER ==
[2021-06-17 09:22] LABS: Basophils # (A) 0.1 k/uL (0-0.2); Basophils % (A) 1 %; Eosinophils # (A) 0.2 k/uL (0-0.7); Eosinophils % (A) 3 %; HCT 41.8 % (34.0-46.0); HGB 13.4 gm/dL (11.4-16.0); Lymphocytes % (A) 40 %; MCH 30.3 pg (25.0-35.0); MCV 94.6 fL (80.0-100.0); Mean Platelet Volume 8.2; Monocytes # (A) 0.4 k/uL (0-1.0); Monocytes % (A) 6 %; Neutrophils # (A) 3.6 k/uL (1.3-7.7); Neutrophils % (A) 49 %; Platelet Count 243 k/uL (150-450); RBC 4.42 m/uL (3.80-5.40); RDW 12.9 % (11.5-15.5); WBC 7.4 k/uL (3.8-10.6)
--- NOTE | 2021-06-17 09:34 | CT ---
EXAMINATION TYPE: CT hip LT wo con DATE OF EXAM: 06/17/2021 COMPARISON: 06/14/2018 plain film HISTORY: Pain in left hip CT DLP: 550.10 mGycm Automated exposure control for dose reduction was used. Contrast: None Technique: Axial images 3 mm thick sections. Reconstructed images in the coronal and sagittal planes. 3-D reconstructed images are performed by the technologist on a separate computer. FINDINGS: There is left hip prosthesis causing beam hardening artifact. This will cause some limitation on eval uation. No acute fractures are evident. Femoral prosthesis articulates with the acetabular component. Some mi d to inferior lucency is adjacent to the acetabular component. Loosening should be considered. Consid er bone scan for additional evaluation. IMPRESSION: 1. THERE IS SOME LUCENCY ADJACENT TO THE MID TO INFERIOR ACETABULUM. LOOSENING IS NOT EXCLUDED. CONSI MARIA ESTHER BONE SCAN FOR ADDITIONAL EVALUATION
[2021-06-17 10:41] LABS: Erythrocyte Sedimentation Rate 18 mm/hr (0-20)
== END | disposition home or self-care (01) ==
LOC: RADCTMAIN 08:21
PROVIDERS: ATTEND Orthopaedic Surgery
DX: M25.552 Pain in left hip (principal)
CPT/HCPCS: 36415; 85025; 85652; 86140

== ENCOUNTER → 2021-12-03 | Outpatient (CLI) | payer MEDICARE, OTHER ==
--- NOTE | 2021-12-03 14:05 | NM ---
EXAMINATION TYPE: NM bone/joint limited DATE OF EXAM: 12/03/2021 COMPARISON: Correlation CT 06/17/2021 HISTORY: 66-year-old female M2 5.552, left hip pain, worsening for the last month. Fall in March 2021. Left hip surgery 3.5 years ago. TECHNIQUE: After the intravenous administration of 23.0 mCi Tc 99m MDP. Images acquired 3 hours pos t injection. Multiple views of the pelvis are submitted. FINDINGS: Nonspecific mild increased activity about the acetabular cup component of the patient's left hip tota l arthroplasty. There is some focal increased activity involving the lower lumbar spine on the right. No abnormal increased activity along the left femoral stem component of the arthroplasty. IMPRESSION: 1. Status post left hip total arthroplasty. There is mild nonspecific increased activity along the ac etabular cup component. No abnormal activity along the femoral stem component. 2. Degenerative tracer activity in the lower lumbar spine towards the right.
== END | disposition home or self-care (01) ==
LOC: RADNMMAIN 10:00
PROVIDERS: ATTEND Orthopaedic Surgery
DX: Z09 Encounter for follow-up examination after completed treatment for conditions other than malignant neoplasm (principal); M25.552 Pain in left hip; E78.5 Hyperlipidemia, unspecified; Z96.642 Presence of left artificial hip joint
CPT/HCPCS: 78300; A9503

== ENCOUNTER → 2021-12-05 | Outpatient (CLI) | payer MEDICARE, OTHER ==
[2021-12-05 10:29] LABS: Ionized Calcium 5.7 mg/dL (4.5-5.3)
[2021-12-05 14:46] LABS: Basophils # (A) 0.05 X 10*3/uL (0.00-0.10); Eosinophils # (A) 0.16 X 10*3/uL (0.04-0.35); Eosinophils % (A) 3.1 %; HCT 42.3 % (37.2-46.3); HGB 13.6 g/dL (12.0-15.0); Lymphocytes # (A) 2.36 X 10*3/uL (0.90-5.00); Lymphocytes % (A) 45.5 %; MCH 29.6 pg (27.0-32.0); MCHC 32.2 g/dL (32.0-37.0); MCV 92.2 fL (80.0-97.0); Monocytes % (A) 7.7 %; Neutrophils % (A) 42.3 %; Platelet Count 256 X 10*3/uL (140-440); RBC 4.59 X 10*6/uL (4.10-5.20); WBC 5.19 X 10*3/uL (4.50-10.00)
[2021-12-05 16:37] LABS: ALT 32 U/L (8-44); AST 23 U/L (13-35); African American GFR (CKD) 81.9 (60.0-200.0); Albumin 4.5 g/dL (3.8-4.9); Albumin/Globulin Ratio 2.04 (1.60-3.17); Alkaline Phosphatase 138 U/L (41-126); BUN/Creat Ratio 16.41 Ratio (12.00-20.00); Blood Urea Nitrogen 13.9 mg/dL (9.0-27.0); Calcium 10.5 mg/dL (8.7-10.3); Carbon Dioxide 23.2 mmol/L (20.0-27.5); Chloride 106 mmol/L (96-109); Chol/HDL Ratio 3.96 Ratio; Globulin 2.2 g/dL (1.6-3.3); Glucose 106 mg/dL (70-110); LDL Cholesterol,Calculated 122.6 mg/dL (0.0-131.0); Non-African American GFR(CKD) 70.7 (60.0-200.0); Potassium 4.2 mmol/L (3.5-5.5); Sodium 141 mmol/L (135-145); Total Bilirubin <0.20 mg/dL (0.30-1.20); Total Protein 6.7 g/dL (6.2-8.2)
== END | disposition home or self-care (01) ==
LOC: LABWHC1 09:16
PROVIDERS: ATTEND Physician Assistant
DX: R74.8 Abnormal levels of other serum enzymes (principal); E83.52 Hypercalcemia
CPT/HCPCS: 36415; 80053; 80061; 82306; 82330; 83970; 85025

== ENCOUNTER → 2021-12-09 | Outpatient (CLI) | payer MEDICARE, OTHER | END | disposition home or self-care (01) | LOC: LABWHC1 07:20 | PROVIDERS: ATTEND Orthopaedic Surgery | DX: Z96.642 Presence of left artificial hip joint (principal); T84.84XA Pain due to internal orthopedic prosthetic devices, implants and grafts, initial encounter; Y82.9 Unspecified medical devices associated with adverse incidents | CPT/HCPCS: 36415; 85379; 85652; 86140 ==

== ENCOUNTER → 2022-04-20 | Outpatient (CLI) | payer MEDICARE, OTHER | END | disposition home or self-care (01) | LOC: LABPAT 10:06 | PROVIDERS: ATTEND Orthopaedic Surgery | DX: Z01.812 Encounter for preprocedural laboratory examination (principal); M16.12 Unilateral primary osteoarthritis, left hip | CPT/HCPCS: 80053; 81003; 85027; 85610; 85730; 86850; 86900; 86901; 87070; 93005 ==

== ENCOUNTER 2022-05-01 08:47 | Day surgery (SDC) | payer MEDICARE, OTHER ==
[2022-04-20 12:11] LABS: Appearance,Urine Clear (Clear); Bilirubin,Urine Negative (Negative); Blood,Urine Negative (Negative); Color,Urine Colorless; Glucose,Urine (UA) Negative (Negative); Ketones,Urine Negative (Negative); Leukocyte Esterase,Urine Negative (Negative); Nitrite,Urine Negative (Negative); Protein,Urine Negative (Negative); Specific Gravity,Urine 1.004 (1.001-1.035); Urobilinogen,Urine <2.0 mg/dL (<2.0)
[2022-04-20 12:26] LABS: INR 0.9 (<1.2); Partial Thromboplastin Time 22.7 sec (22.0-30.0); Prothrombin Time 9.7 sec (9.0-12.0)
[2022-04-20 18:42] LABS: HCT 39.4 % (37.2-46.3); HGB 12.3 g/dL (12.0-15.0); MCH 29.3 pg (27.0-32.0); MCHC 31.2 g/dL (32.0-37.0); MCV 93.8 fL (80.0-97.0); Mean Platelet Volume 11.7 fL (9.5-12.2); NRBC Per 100 WBC 0 /100 WBCS (0.0-0.0); Platelet Count 205 X 10*3/uL (140-440); RDW 13.7 % (11.5-14.5)
[2022-04-20 23:11] LABS: African American GFR (CKD) 57.2 (60.0-200.0); Albumin/Globulin Ratio 1.57 (1.60-3.17); Anion Gap 10.5 mmol/L (10.00-18.00); BUN/Creat Ratio 16.84 Ratio (12.00-20.00); Blood Urea Nitrogen 19.2 mg/dL (9.0-27.0); Carbon Dioxide 26.7 mmol/L (20.0-27.5); Globulin 2.6 g/dL (1.6-3.3); Non-African American GFR(CKD) 49.4 (60.0-200.0); Potassium 4.7 mmol/L (3.5-5.5); Total Bilirubin 0.2 mg/dL (0.30-1.20); Total Protein 6.6 g/dL (6.2-8.2)
[2022-04-28 13:43] VITALS: BMI 35.6
[~2022-05-01 08:47] MED LIST changes: -ACETAMINOPHEN TAB 500 MG TAB PO ONE; +ACETAMINOPHEN TAB 500 MG TAB PO PRN; -DEXAMETHASONE SOD PHOSPHATE 10 MG/ML 1 ML VIAL IV ONE; +DEXAMETHASONE SOD PHOSPHATE 10 MG/ML 1 ML VIAL IV PRN; +DOCUSATE 100 MG CAP PO PRN; +FAMOTIDINE 20 MG/2 ML VIAL IVP PRN; +KETOROLAC 15 MG/ML 1 ML VIAL IVP PRN; +LACTATED RINGERS 1,000 ML IV SCH; -MELOXICAM 7.5 MG TAB PO ONE; -ONDANSETRON 4 MG/2 ML VIAL IVP ONE; +ONDANSETRON 4 MG/2 ML VIAL IVP PRN; -ROPIVACAINE 246.25 MG, EPINEPHrine 0.5 MG, KETOROLAC 30 MG, cloNIDine HCL/PF 80 MCG, WA... MISCELLANE ONE; -TRANEXAMIC ACID 1,000 MG in SODIUM CHLORIDE 0.9% 50 ML IVPB ONE; +TRANEXAMIC ACID IN NACL,ISO-OS 1,000 MG in SALINE 1 100ML.BAG IVPB PRN; -ceFAZolin IN SWFI 2 GM/20 ML SYRINGE IVP ONE; -fentaNYL (PF) 50 MCG/ML 2 ML AMP IV PRN; +oxyCODONE ER 10 MG TAB.ER.12H PO PRN
[2022-05-01] MEDS ORDERED: MIDAZOLAM 2 MG/2 ML VIAL IVP ONE (10:02)
--- NOTE | 2022-05-01 10:21 | P.ANPRN ---
Procedure Note - Anesthesia - Nerve Block Performed Left Erector Spinae Single Time Out Performed: Yes Date of Procedure: 05/01/22 Procedure Start Time: 10:02 Procedure Stop Time: 10:15 Location of Patient: PreOp Indication: Acute Post-Operative Pain, Requested by Surgeon Sedation Type: Sedate with meaningful contact maintained Preparation: Sterile Prep, Sterile Dressing Position: Prone Catheter: None Needle Types: Pajunk Needle Gauge: 20 Ultrasound used to visualize needle placement: Yes Ultrasound used to observe medication spread: Yes Injectate: 0.5% Ropivacaine (see comment for volume) (30 ml + decadron 4 mg) Blood Aspirated: No Pain Paresthesia on Injection Noted: No Resistance on Injection: Normal Image Stored and Saved: Yes Events: Uneventful and Well Tolerated
[2022-05-01] MEDS ORDERED: GLYCOPYRROLATE 0.2 MG/ML 2 ML VIAL ONE (10:24)
[2022-05-01] MEDS ORDERED: LIDOCAINE 2% INJ 20 MG/ML (2 ML VIAL) ONE (10:24)
[2022-05-01] MEDS ORDERED: TRANEXAMIC ACID IN NACL,ISO-OS 1,000 MG/100 ML BAG ONE (10:24)
[2022-05-01] MEDS ORDERED: ROPIVACAINE 5 MG/ML 30 ML VIAL ONE (10:24)
[2022-05-01] MEDS ORDERED: PROPOFOL 10 MG/ML 20 ML VIAL IV ONE (10:24)
[2022-05-01] MEDS ORDERED: DEXAMETHASONE SOD PHOSPHATE 4 MG/ML 1 ML VIAL ONE (10:24)
[2022-05-01] MEDS ORDERED: NEOSTIGMINE 1 MG/ML 10 ML VIAL ONE (10:24)
[2022-05-01] MEDS ORDERED: fentaNYL (PF) 50 MCG/ML 2 ML AMP ONE (10:24)
[2022-05-01] MEDS ORDERED: ROCURONIUM 10 MG/ML (5 ML VIAL) IV ONE (10:24)
[2022-05-01] MEDS: ROPIVACAINE/EPI/CLONIDINE/KET 50 ML SYRINGE MISCELLANE PRN ×2 (10:33→13:01)
[2022-05-01] MEDS ORDERED: LACTATED RINGERS 1,000 ML IV ONE ×2 (12:12→15:04)
[2022-05-01] MEDS ORDERED: VANCOMYCIN 1,000 MG VIAL MISCELLANE ONE (13:01)
--- NOTE | 2022-05-01 13:27 | XR ---
Fluoroscopy INDICATION: Pain FINDINGS: Fluoroscopy time: 33 seconds. Images obtained: 5. IMPRESSIONS: 1. Documentation of fluoroscopy.
[2022-05-01] MEDS ORDERED: hydrOXYzine pamoate 25 MG CAP PO PRN (14:11)
[2022-05-01] MEDS ORDERED: HYDROmorphone 0.5 MG/0.5 ML SYRINGE IVP PRN ×3 (14:11)
[2022-05-01] MEDS ORDERED: NALOXONE 0.4 MG/ML 1 ML VIAL IV PRN (14:11)
[2022-05-01] MEDS ORDERED: ONDANSETRON 4 MG/2 ML VIAL IVP PRN ×2 (14:11→20:40)
[2022-05-01] MEDS: HYDROmorphone 0.5 MG/0.5 ML SYRINGE IVP PRN ×2 (14:24→14:46)
--- NOTE | 2022-05-01 14:24 | P.OP ---
Date of Procedure: 05/01/22 Preoperative Diagnosis: 1. Painful left total hip arthroplasty etiology aseptic acetabular component loosening Postoperative Diagnosis: Same Procedure(s) Performed: 1. Revision left total hip arthroplasty (acetabular component revision) 2. Application of negative pressure wound VAC left hip (incisional wound VAC) less than 50 cm (20 cm) Implants: Ethel Trident II 52 mm multihole cup augmented with 5 screws Ethel dual mobility 42 mm outer diameter [employer] Oxinium 28 mm inner diameter head, -3 mm Anesthesia: GETA Surgeon: Sam Ttius Manager Psychiatry #1: Win Gaffney Estimated Blood Loss (ml): 150 IV fluids (ml): 1,200 Pathology: none sent Condition: stable Disposition: PACU Indications for Procedure: The patient is a very pleasant 66-year-old female with a medical history sign ificant for hyperparathyroidism (recently underwent parathyroidectomy) who underwent a left direct anterior total hip replacement by another surgeon in 2018. She initially did well but then developed progressively worsening left groin pain. Serial x-rays of the left hip were concerning for aseptic loosening as there was a radiolucent line in all 3 zones. She had a computed tomography scan which showed evidence of loosening. She also had a triple phase bone scan which showed signal in the acetabular cup. There is no uptake in the femur. She met with me to discuss revision surgery. Her clinical exam and presenting history along with her radiographic findings were all consistent with aseptic loosening of the acetabular component. We discussed revision surgery with revision of the acetabular cup. We also discussed that I would evaluate the stem for loosening and if it appeared loose would revise the stem as well. We had a long discussion on the potential risks and complications of surgery including but certainly not limited to risks from anesthesia, superficial infection, deep periprosthetic joint infection, aseptic loosening of the revision cup, dislocation, leg length discrepancy, damage to local blood vessels or nerves, delayed wound healing, continued or worsened pain, need for further surgery, dissatisfaction with surgical outcome, DVT, PE, other medical complications, and possibly loss of life or limb. The patient voiced her understanding of the potential applications and also acknowledges that other less common complications are possible. She also understands the increased risk of complication due to this being a revision. She provided both her verbal and written consent to go forward with surgery. Operative Findings: There was no sign of deep infection. After the hip was dislocated and the cup was inspected it appeared to be grossly loose. There was bony overgrowth circumferentially surrounding the cup, but when this was removed there was micromotion noted of the cup. After the cup was removed on inspection there was a small area of fibrous ingrowth superolaterally on the back surface of the cuff but otherwise there was minimal bony ingrowth. The femoral stem appeared stable. Description of Procedure: The patient was identified in preoperative holding and the correct left hip was marked with my initials. I reviewed the consent form with the patient and her and all their questions were answered. The patient was given a block by anesthesia. She was brought back to the operating room. A general anesthetic with full muscle relaxation was provided by anesthesia on the [facility]. Preoperative antibiotics and TXA were given. I evaluated the patient's leg lengths which appeared to be even. Boots for the Dian table were then applied and carefully padded. The patient was carefully transferred onto the [place] table. A perineal post was immediately placed. Both boots were attached to the spars. Nonsterile drapes were applied. Preoperative imaging was taken and an AP image of the pelvis was obtained that mass the standing AP taken in the office. The metallic bar was placed along the bottom of the ischium to use as an intraoperative reference. The left leg was then prepped and draped in the standard sterile fashion. Prior to surgery timeout was performed identifying the correct patient, operative extremity and procedure. The patient's left leg was then prepped and draped in the standard sterile fashion. I began by using the prior scar from previous direct anterior approach and extending it both proximally and distally. Dissection was carried down to subcutaneous fat with electrocautery. The fascia over the tensor muscle belly was identified and incised in line with the skin incision staying lateral to the ASIS. The tensor muscle belly was found to be scarred to the undersurface of the fascia consistent with this being a revision procedure. I carefully develop the interval looking for the avascular zone lateral to the sartorius and rectus muscle belly. Dissection was carried down to the anterior hip pseudocapsule. A Cobra retractor was placed superior to the femoral neck. I carefully develop the interval between the anterior musculature and hip capsule in a single pronged [place] retractor was placed over the anterior rim of the pelvis. A capsulectomy was then performed. There was minimal fluid in the joint and no purulence. The hip was circumferentially exposed. Longitudinal traction was applied to the Dian table in the femoral head was disengaged from the Spears taper using a bone tamp and a mallet. Using a bone hook the trunnion was dissociated from the femoral head with traction and external rotation. The trunnion was then placed posteriorly in a previously developed pocket. Traction was released and a Cobra retractor was used to carefully retract the trunnion. The femoral head was then removed. The acetabular component was then circumferentially exposed. The polyliner was carefully removed. The 2 screws were also removed from the cup. On gross inspection there appeared to be motion of the cup when it was grasped. There was some bony overgrowth which was removed. The cup was then circumferentially exposed with a pencil tipped bur. Osteotomes were used to fully disengage the cup from the underlying bone. The cup was easily removed. On inspection on the back table there is a small area of fibrous ingrowth but minimal bony ingrowth into the cup consistent with aseptic loosening. On inspection of the acetabular socket there was a thin anterior and posterior wall but no defects. There was no evidence of discontinuity. The underlying bone appeared sclerotic. The removed cup was a 48 mm cup. I then sequentially reamed starting with a 49 mm reamer up to a 51 mm reamer. There was circumferential bleeding bone. The anterior and posterior parmar while thin were still intact. A 52 mm multi hole cup was dispensed. I gently tapped the cup into place and guided the version and abduction with fluoroscopy. An excellent press fit was obtained and I was able to move the patient's whole pelvis with the insertion handle. 4 screws were placed to further augment the press-fit. The cup was found to be stable. Fluoroscopy was brought in to verify position. A dual mobility liner was then tapped into the socket and I verified it had fully engaged. At this point the proximal femur was exposed. The stem was circumferentially exposed and appeared to be well fixed. There is no motion. The trunnion appeared intact. A -3 mm inner diameter head and a 42 mm outer diameter head were tapped onto the trunnion engaging the Spears taper. The wound was thoroughly irrigated and the hip was c arefully reduced under visualization. The hip was stable to external rotation to 90. Final fluoroscopic images were taken. The wound was then thoroughly irrigated. A 3 minute soaked with dilute Betadine was performed. 3 L of sterile saline was then irrigated through the wound using pulsatile lavage. 2 g of vancomycin powder was placed deep at the level of the implant. A deep Hemovac drain was applied. The wound was then closed in layers. The skin incision was closed with a running 3-0 Monocryl subcuticular stitch and reinforced with 3-0 nylon interrupted vertical mattress. Due to this being a revision a Prevena incisional wound VAC was applied. I verified that all instrument, sponge, and sharp counts were correct. The patient was carefully transferred off of the [place] table. On her gurney. Leg lengths felt equal. The patient was brought to recovery having tolerated the procedure well. Win Gaffney PA-C was required as a skilled senior executive assistant due to the complexity of the surgery. Plan: The patient can weight-bear as tolerated on her left hip she received 2 doses of IV antibiotics. Due to this being a revision I would like her treated with 6 weeks of oral doxycycline for low-dose antibiotic suppression in line with recent orthopedic literature. She'll be treated with aspirin for DVT prophylaxis. Internal medicine for perioperative medical management. Her drain can be removed on her output is less then 100 mL's per shift. She will need follow-up in the office in 1 week for a wound check and Prevena wound VAC removal.
--- NOTE | 2022-05-01 14:33 | FL ---
Fluoroscopy HISTORY: Hip replacement 33 seconds fluoroscopy time supplied to the referring clinician. 8 intraoperative C-arm images docum ent the procedure. See dictated report from orthopedic surgery.
[2022-05-01] MEDS ORDERED: diphenhydrAMINE 50 MG/ML 1 ML VIAL IVP ONE (14:45)
[2022-05-01] MEDS: HYDROcodone/APAP 5-325MG 1 EACH TAB PO PRN (16:25)
[2022-05-01] MEDS: PANTOPRAZOLE 40 MG TABLET PO SCH (17:43)
--- NOTE | 2022-05-01 18:17 | CONS ---
CONSULTATION REASON FOR CONSULTATION: Advice regarding hyperlipidemia and other medical issues, requested by Orthopedic Surgery. HISTORY OF PRESENT ILLNESS: This 66-year-old woman with a past medical history of DJD and history of hyperlipidemia underwent revision of left total hip arthroplasty. There is no history of any fever, rigors or chills. No history of headache, loss of consciousness, seizures. Patient is complaining of occasional cough. PAST MEDICAL HISTORY: Hyperlipidemia, DJD, history of pneumonia. HOME MEDICATIONS: Reviewed. They include trazodone. Doses and the rest of the medications are noted. ALLERGIES: NONE. FAMILY HISTORY: History of lung cancer, liver cancer. SOCIAL HISTORY: No history of smoking. REVIEW OF SYSTEMS: Fourteen-point review of systems negative except as mentioned earlier. PHYSICAL EXAMINATION: Pulse is 78, blood pressure ntd, respirations 16, temperature normal. HEENT: Conjunctivae normal. NECK: No jugular venous distention. CARDIOVASCULAR: S1, S2 muffled. RESPIRATION: Breath sounds diminished at the bases. No rhonchi. No crackles. ABDOMEN: Soft. LEGS: Status post surgery. NERVOUS SYSTEM: No focal deficit. SKIN: No ulcer, rash, bleeding. JOINTS: No active deforming arthropathy. LABS: Reviewed. CBC within normal limits. Other labs are reviewed, ASSESSMENT: 1. Status post revision left total hip arthroplasty. 2. Hyperlipidemia. 3. History of pneumonia. 4. Gastroesophageal reflux disease. RECOMMENDATIONS AND DISCUSSION: In this 66-year-old woman who presented after surgery, at this time I recommend continuing with symptomatic treatment. Resume the home medications. DVT prophylaxis. Incentive spirometry. Will follow the patient closely with you. The rest of the recommendations per Orthopedic Surgery. Further recommendations to follow. MMODL / IJN: [id number] / MTDCrys
[2022-05-01] MEDS: ASPIRIN 81 MG PO SCH (20:46)
[2022-05-01] MEDS ORDERED: SENNOSIDES-DOCUSATE SODIUM 1 EACH TAB PO SCH (21:00)
[2022-05-01] MEDS ORDERED: ATORVASTATIN 10 MG TAB PO SCH (21:00)
[2022-05-01] MEDS ORDERED: traZODone HCL 50 MG TAB PO SCH (21:00)
[2022-05-02] MEDS: HYDROcodone/APAP 5-325MG 1 EACH TAB PO PRN ×3 (05:10→11:41)
[2022-05-02 07:45] VITALS: BP 99/61; PULSE 90; RESP 16; TEMP 98.6
--- NOTE | 2022-05-02 08:11 | P.PN ---
Subjective Progress Note Date: 05/02/22 Doing well. Some pain, but improved since yesterday. No other complaints this morning. Objective - Vital Signs Vital signs: Vital Signs Temp 98.6 F 05/02/22 07:45 Pulse 90 05/02/22 07:45 Resp 16 05/02/22 07:45 BP 99/61 05/02/22 07:45 Pulse Ox 95 05/02/22 07:45 FiO2 Intake & Output 05/01/22 05/02/22 05/02/22 18:59 06:59 18:59 Intake Total 2480 Output Total 150 80 Balance 2330 -80 Weight 90.8 kg Intake: IV 2000 Oral 480 Output: Drainage 80 Left Medial Hip 80 Estimated Blood Loss 150 Other: Voiding Method Toilet # Voids 0 3 # Bowel Movements 0 - Exam Resting comfortably. NAD. Left lower extremity: Incisional wound VAC in place with good seal. Hemovac drain in place. Thigh and calf are soft. Femoral and sciatic nerve function intact. Sensation is intact to light touch throughout the foot. - Labs CBC & Chem 7: 04/20/22 11:47 04/20/22 11:47 Assessment and Plan Assessment: Postoperative day #1 status post left revision hip arthroplasty, revision of aseptic loosening acetabular component Plan: 1. Weightbearing as tolerated left lower extremity with walker 2. DVT prophylaxis with aspirin 81 mg twice a day 3. Doxycycline 100 mg twice a day 6 weeks for a septic revision 4. Discontinue Hemovac drain prior to discharge 5. Appreciate internal medicine perioperative medical management 6. Anticipate discharge home today or tomorrow when she passes physical therapy and her pain is controlled
[2022-05-02 08:39] LABS: Basophils # (A) 0.03 X 10*3/uL (0.00-0.10); Basophils % (A) 0.2 %; Eosinophils # (A) 0.01 X 10*3/uL (0.04-0.35); Eosinophils % (A) 0.1 %; HCT 29.2 % (37.2-46.3); HGB 9.2 g/dL (12.0-15.0); Immature Grans, Automated 0.9 %; Lymphocytes # (A) 2.01 X 10*3/uL (0.90-5.00); Lymphocytes % (A) 14.8 %; MCH 29.8 pg (27.0-32.0); MCHC 31.5 g/dL (32.0-37.0); MCV 94.5 fL (80.0-97.0); Monocytes # (A) 0.98 X 10*3/uL (0.20-1.00); Monocytes % (A) 7.2 %; NRBC Per 100 WBC 0 /100 WBCS (0.0-0.0); Neutrophils % (A) 76.8 %; Platelet Count 229 X 10*3/uL (140-440); RBC 3.09 X 10*6/uL (4.10-5.20); RDW 13.5 % (11.5-14.5); WBC 13.55 X 10*3/uL (4.50-10.00)
[2022-05-02] MEDS: PANTOPRAZOLE 40 MG TABLET PO SCH (08:58)
[2022-05-02] MEDS: ASPIRIN 81 MG PO SCH (08:58)
[2022-05-02] MEDS ORDERED: MULTIVITAMINS, THERA 1 EACH TAB PO SCH (09:00)
[2022-05-02] MEDS ORDERED: VENLAFAXINE HCL ER 75 MG CAP PO SCH (09:00)
--- NOTE | 2022-05-02 10:01 | P.DS ---
Providers Expected date of discharge: 05/02/22 Attending physician: Sam Titus Consults: 05/01/22 14:11 Consult Physician Routine Consulting Provider: aDo Diana Consult Reason/Comments: medical management Do you want consulting provider notified?: Yes Primary care physician: Caroline Morgan MD - Discharge Diagnosis(es) (1) Failure of total hip arthroplasty Current Visit: Yes Status: Acute (2) S/P total hip arthroplasty Current Visit: Yes Status: Acute (3) Status post revision of total hip replacement Current Visit: Yes Status: Acute Hospital Course: The patient is a very pleasant 66-year-old female with a medical history significant for hyperparathyroidism (recently underwent parathyroidectomy) who underwent a left direct anterior total hip replacement by another surgeon in 2018. She initially did well but then developed progressively worsening left groin pain. Serial x-rays of the left hip were concerning for aseptic loosening as there was a radiolucent line in all 3 zones. She had a computed tomography scan which showed evidence of loosening. She also had a triple phase bone scan which showed signal in the acetabular cup. There is no uptake in the femur. She met with me to discuss revision surgery. Her clinical exam and presenting history along with her radiographic findings were all consistent with aseptic loosening of the acetabular component. We discussed revision surgery with revision of the acetabular cup. We also discussed that I would evaluate the stem for loosening and if it appeared loose would revise the stem as well. We h ad a long discussion on the potential risks and complications of surgery including but certainly not limited to risks from anesthesia, superficial infection, deep periprosthetic joint infection, aseptic loosening of the revision cup, dislocation, leg length discrepancy, damage to local blood vessels or nerves, delayed wound healing, continued or worsened pain, need for further surgery, dissatisfaction with surgical outcome, DVT, PE, other medical complications, and possibly loss of life or limb. The patient voiced her understanding of the potential applications and also acknowledges that other less common complications are possible. The patient is taken to surgery on 05/01/2022 for revision of the acetabular component left hip. Procedure is performed without complication or sequelae. Patient's doing well on postop day 1. She has no new complaints or concerns today. Vital signs and labs are stable. Her pain is well controlled. She is planning discharge to home today. Plan - Discharge Summary Discharge Rx Participant: Yes New Discharge Prescriptions: New Doxycycline Monohydrate 100 mg PO BID 42 Days #84 cap HYDROcodone/APAP 5-325MG [[place] 5-325] 1 - 2 tab PO Q6HR PRN 7 Days #40 tab PRN Reason: Pain Omeprazole 40 mg PO DAILY 30 Days #30 cap Aspirin 81 mg PO BID 30 Days #60 tab Docusate [Colace] 100 mg PO BID #60 capsule Diclofenac Sodium [Voltaren] 75 mg PO BID 30 Days #60 tab No Action Multivitamins, Thera [Multivitamin (formulary)] 1 tab PO DAILY Lovastatin [Mevacor] 20 mg PO HS traZODone HCL 150 mg PO HS Omeprazole 40 mg PO DAILY Venlafaxine HCl [Effexor XR] 75 mg PO DAILY Aspirin [Adult Low Dose Aspirin EC] 81 mg PO DAILY Vit C/E/Zn/Coppr/Lutein/Zeaxan [Preservision Areds 2 Softgel] 1 cap PO DAILY Ibuprofen [Motrin] 800 mg PO Q8H PRN PRN Reason: Pain Discharge Medication List Lovastatin [Mevacor] 20 mg PO HS 04/22/16 [History] Multivitamins, Thera [Multivitamin (formulary)] 1 tab PO DAILY 04/22/16 [History] traZODone HCL 150 mg PO HS 04/22/16 [History] Omeprazole 40 mg PO DAILY 06/06/18 [History] Venlafaxine HCl [Effexor XR] 75 mg PO DAILY 06/14/18 [History] Aspirin [Adult Low Dose Aspirin EC] 81 mg PO DAILY 07/26/20 [History] Vit C/E/Zn/Coppr/Lutein/Zeaxan [Preservision Areds 2 Softgel] 1 cap PO DAILY 07/26/20 [History] Ibuprofen [Motrin] 800 mg PO Q8H PRN 04/28/22 [History] Aspirin 81 mg PO BID 30 Days #60 tab 05/01/22 [Rx] Diclofenac Sodium [Voltaren] 75 mg PO BID 30 Days #60 tab 05/01/22 [Rx] Docusate [Colace] 100 mg PO BID #60 capsule 05/01/22 [Rx] Doxycycline Monohydrate 100 mg PO BID 42 Days #84 cap 05/01/22 [Rx] HYDROcodone/APAP 5-325MG [[place] 5-325] 1 - 2 tab PO Q6HR PRN 7 Days #40 tab 05/01/22 [Rx] Omeprazole 40 mg PO DAILY 30 Days #30 cap 05/01/22 [Rx] Follow up Appointment(s)/Referral(s): [facility] [NON-STAFF] - As Needed ([facility] will call you to schedule your in home physical therapy visits. ) Sam Titus MD [Medical Doctor] - 1 Week Activity/Diet/Wound Care/Special Instructions: Weight bearing as tolerated on operative leg with a walker. Keep Prevena wound vac in place until follow-up appointment in the office. Take pain medications as prescribed. Take aspirin 81mg BID x 4 weeks for blood clot prevention. Take antibiotics as prescribed. Follow-up in the office in one week for wound vac removal and incision check. Call the office with any questions or concerns, Discharge Disposition: HOME WITH HOME HEALTH SERVICES
--- NOTE | 2022-05-02 13:42 | PN ---
PROGRESS NOTE DATE OF SERVICE: 05/02/2022 This 66-year-old woman who was admitted after revision of the left total hip joint is improving significantly. No chest pain. No palpitations. Occasional cough is reported. PHYSICAL EXAMINATION: Pulse is 90, blood pressure 99/60, respirations 17. HEENT: Conjunctivae normal. NECK: No jugular venous distention. CARDIOVASCULAR: S1, S2 muffled. RESPIRATION: Breath sounds diminished at the bases. ABDOMEN: Soft. LEGS: Status post surgery. LABS: Noted. Hemoglobin 9.2. UA unremarkable. ASSESSMENT: 1. Status post revision of left total hip joint arthroplasty. 2. Hyperlipidemia. 3. History of pneumonia. 4. Gastroesophageal reflux disease. RECOMMENDATIONS AND DISCUSSION: I recommend to continue current medications, continue with the monitoring, symptomatic treatment. DVT prophylaxis. Incentive spirometry. Otherwise, follow with primary physician closely after discharge. Rest of the recommendations per Orthopedic Surgery. MMODL / IJN: [id number] /
== END 2022-05-02 12:53 | disposition home health service (06) ==
LOC: OR 08:47 → 4SSUR 13:45 → OR 05-02 12:53
PROVIDERS: ATTEND Orthopaedic Surgery
DX: T84.013A Broken internal left knee prosthesis, initial encounter (principal); E78.5 Hyperlipidemia, unspecified; K21.9 Gastro-esophageal reflux disease without esophagitis; M19.90 Unspecified osteoarthritis, unspecified site; Z79.899 Other long term (current) drug therapy; Z87.01 Personal history of pneumonia (recurrent)
CPT/HCPCS: 27137; 97161; 64999; 82310; 85025; 73501; C1713; C1776; J2250; J3370; J1200; J1100 ×2; J2710; J0690 ×2; J2405; J3010; J2795; J1885; J2704; J1170; J2001; 80053; 81003; 85027; 85610; 85730; 86850; 86900; 86901; 87070; 93005

== ENCOUNTER → 2022-06-26 | Outpatient (CLI) | payer MEDICARE, OTHER ==
--- NOTE | 2022-06-27 17:21 | MR ---
EXAMINATION TYPE: MR lumbar spine wo con DATE OF EXAM: 06/26/2022 COMPARISON: NONE HISTORY: LBP, LLE radiculopathy following left hip revision surgery. TECHNIQUE: Multiplanar, multisequence imaging of the lumbar spine is performed without IV contrast. FINDINGS: Sagittal images of the lumbar spine show vertebral body heights to appear satisfactory. Gra de 1 anterolisthesis L4 on L5 and slight grade 1 retrolisthesis L5 on S1. Multilevel disc desiccation . Moderate disc space narrowing L4-L5. Moderate disc space narrowing with heterogeneous Modic type I I endplate changes and mild to moderate spurring L5-S1 level. The conus medullaris is normal in posit ion and signal ending at L1-L2 disc space level. Axial images at T12-L1 through the L3-L4 levels show mild to moderate facet arthropathy bilaterally. Spinal canal is preserved. Bilateral neural foramina are patent. Axial images at L4-L5 level spondylolisthesis with mild to moderate facet arthropathy and ligamentum flavum hypertrophy. There is mild broad disc bulge minimally effaces the anterior thecal sac. There i s mild left and moderate right-sided anterior inferior neural foraminal narrowing. Axial images at L5-S1 levels show [id number] facet arthropathy bilaterally. There is focal cent ral disc protrusion. Spinal canal is preserved as there is increased epidural fat. There is mild to m oderate bilateral inferior neural foraminal narrowing right greater than left noted. No suspicious retroperitoneal findings are present. IMPRESSION: Spondylolisthesis and degenerative changes greatest in the lower lumbar spine as detailed above.
== END | disposition home or self-care (01) ==
LOC: RADMRIMAIN 16:07
PROVIDERS: ATTEND Orthopaedic Surgery
DX: M43.16 Spondylolisthesis, lumbar region (principal); M47.26 Other spondylosis with radiculopathy, lumbar region
CPT/HCPCS: 72148

== ENCOUNTER 2022-10-27 10:02 | Day surgery (SDC) | payer MEDICARE, OTHER ==
[2022-10-20 10:17] VITALS: BMI 34.7
[~2022-10-27 10:02] MED LIST changes: -ACETAMINOPHEN TAB 500 MG TAB PO PRN; -DEXAMETHASONE SOD PHOSPHATE 10 MG/ML 1 ML VIAL IV PRN; -DOCUSATE 100 MG CAP PO PRN; -FAMOTIDINE 20 MG/2 ML VIAL IVP PRN; -KETOROLAC 15 MG/ML 1 ML VIAL IVP PRN; -MIDAZOLAM 2 MG/2 ML VIAL IV PRN; -ONDANSETRON 4 MG/2 ML VIAL IVP PRN; -TRANEXAMIC ACID IN NACL,ISO-OS 1,000 MG in SALINE 1 100ML.BAG IVPB PRN; -oxyCODONE ER 10 MG TAB.ER.12H PO PRN
[2022-10-27 10:56] VITALS: TEMP 97.5
[2022-10-27] MEDS ORDERED: NA PHOS,M-B/NA PHOS,DI-BA 133 ML ENEMA RECTAL ONE (11:16)
[2022-10-27] MEDS ORDERED: PROPOFOL 10 MG/ML 20 ML VIAL IV ONE (11:47)
[2022-10-27] MEDS ORDERED: LIDOCAINE 2% INJ 20 MG/ML (2 ML VIAL) ONE (11:47)
--- NOTE | 2022-10-27 12:05 | P.PCN ---
Date of Procedure: 10/27/22 Procedure(s) Performed: BRIEF HISTORY: Patient is a 67-year-old pleasant white female scheduled for an elective colonoscopy as a part of screening for colon cancer. PROCEDURE PERFORMED: Colonoscopy. PREOPERATIVE DIAGNOSIS: Screening for colon cancer. IV sedation per Anesthesia. PROCEDURE: After informed consent was obtained, the patient, was brought into the endoscopy unit. IV sedation was administered by Anesthesia under continuous monitoring. Digital rectal examination was normal. Initially the Olympus CF-160 flexible video colonoscope was then inserted in the rectum, gradually advanced into the cecum without any difficulty. Careful examination was performed as the scope was gradually being withdrawn. Ileocecal valve and the appendiceal orifice were visualized and appeared normal. Prep was poor.. Mucosa of the cecum, ascending colon, transverse colon, descending colon, sigmoid colon, and rectum appeared normal. Some areas of the colon could not be adequately visualized because of solid stool which could not be irrigated. Retroflexion was performed in the rectum and no lesions were seen. The patient tolerated the procedure well. IMPRESSION: Normal-appearing colon from rectum to cecum with no emesis of colorectal neoplasia. Poor prep in some areas of the colon RECOMMENDATIONS: Findings of this examination were discussed with the patient as well as a family.. She was advised to have a repeat colonoscopy in 5 years because of the poor prep that wasn't confident today's examination.
[2022-10-27 12:43] VITALS: BP 119/80; PULSE 71; RESP 16
== END 2022-10-27 12:46 | disposition home or self-care (01) ==
LOC: ORWHC2ENDO 10:02
PROVIDERS: ATTEND Internal Medicine Gastroenterology
DX: Z12.11 Encounter for screening for malignant neoplasm of colon (principal)
CPT/HCPCS: J2704; J2001; G0121; 45378

== ENCOUNTER → 2023-04-28 | Outpatient (CLI) | payer MEDICARE, OTHER ==
--- NOTE | 2023-04-28 10:36 | MR ---
EXAMINATION TYPE: MR cervical spine wo con DATE OF EXAM: 04/28/2023 COMPARISON: None HISTORY: Neck and left shoulder pain x 4 mos. CONTRAST: Performed utilizing 0 mL intravenous Gadavist gadolinium contrast. TECHNIQUE: Multiplanar multiecho imaging on a 3.0 Vielka magnet is performed through the cervical spin e. FINDINGS: The craniovertebral junction is normal. Vertebral body alignment is normal. C7-T1: No focal disc herniation or significant disc bulge is evident. No spinal canal stenosis or n eural foraminal stenosis is present. C6-7: Mild broad-based disc bulge is present with anterior thecal sac contact. This has mild anterior thecal sac compression better visualized on the sagittal plane images. No cord contact or spinal can al stenosis present. Uncovertebral joint hypertrophy is present with mild bilateral foraminal narrowi ng.. Some facet hypertrophy is posterior thecal sac compression that are visualized in the sagittal p jemima images. C5-6: Minimal disc bulge has anterior thecal sac contact better visualized on the sagittal plane imag es. No cord contact is evident. No spinal canal stenosis present. Neural foramen and moderate narrowi ng from uncovertebral joint hemorrhage.. C4-5: No focal disc herniation or significant disc bulge is evident. No spinal canal stenosis or joo ral foraminal stenosis is present. C3-4: No focal disc herniation or significant disc bulge is evident. No spinal canal stenosis or joo ral foraminal stenosis is present. C2-3: No focal disc herniation or significant disc bulge is evident. No spinal canal stenosis or joo ral foraminal stenosis is present. IMPRESSIONS: 1. Mild disc bulging and facet hypertrophy C6-C7 without spinal canal stenosis or cord contact. 2. Minimal disc bulging C5-6 without cord contact or stenosis. 3. Uncovertebral joint hypertrophy contributing to lateral bilateral foraminal narrowing at C6-7, C5- 6.
--- NOTE | 2023-04-28 21:31 | MR ---
EXAMINATION TYPE: MR shoulder LT wo con DATE OF EXAM: 04/28/2023 COMPARISON: No radiographic correlation available HISTORY: 67-year-old female M75.42, Neck and left shoulder pain x 4 mos. TECHNIQUE: Multiplanar, multisequence imaging of the left shoulder is performed without contrast. FINDINGS: Some linear signal within the intracapsular portion of the long head biceps tendon. The ext racapsular portion remains appropriately situated along the bicipital groove though with mild to mode rate tenosynovial fluid. The subscapularis tendon shows mild inhomogeneous signal but is otherwise intact. There is moderate degenerative change of the AC joint with joint space narrowing and reactive subchon dral marrow signal change. No significant impingement on the underlying myotendinous junction of the supraspinatus. There is a trace effusion within the subacromial/subdeltoid bursa. Mild inhomogeneous signal supraspinatus and infraspinatus tendons without discrete tear. No atrophy of the rotator cuff musculature. Minimal fatty streaks are present. The coracohumeral ligament measures 2 mm thick which is acceptable. However, there is edematous thick ening of the axillary recess and a small to moderate joint effusion. Moderate irregular cartilage loss throughout the glenohumeral joint with marginal spurring. More marina re cartilage loss along the superior half of the humeral head articular surface. Areas of elongated intermediate signal intensity within the superior subscapularis recess measuring u p to 2.3 cm long. Unclear if these represent cleavage cartilage fragment loose bodies versus abnormal calcifications. Some degenerative signal in the superior and posterior labrum. No discrete labral tear given on the r adiographic technique and no para labral cyst. No Hill-Sachs deformity or os acromiale. Mild patchy red marrow is present. No suspicious bone marrow replacement. IMPRESSION: 1. Mild diffuse rotator cuff tendinosis. No discrete rotator cuff tear. 2. Moderate overall glenohumeral joint OA. More severe cartilage loss along the superior half of the humeral head articular surface. There are intermediate signal foci within the superior subscapularis recess measuring up to 2.3 cm long; unclear if these represent cleaved cartilage fragment loose yehuda s versus calcifications such as relating to gout. Clinically correlate. 3. Edematous thickening of the axillary recess. Consider a sprain of the inferior glenohumeral ligame nt. The coracohumeral ligament is normal thickness arguing against adhesive capsulitis. Again, clinic ally correlate. 4. Some linear interstitial tearing involving the intracapsular portion of the long biceps tendon. As sociated mild tenosynovitis. 5. Moderate AC joint joint but without any significant impingement on the underlying cuff.
== END | disposition home or self-care (01) ==
LOC: RADMRIMAIN 06:00
PROVIDERS: ATTEND Orthopaedic Surgery
DX: M19.012 Primary osteoarthritis, left shoulder (principal); S46.112A Strain of muscle, fascia and tendon of long head of biceps, left arm, initial encounter; S46.002D Unspecified injury of muscle(s) and tendon(s) of the rotator cuff of left shoulder, subsequent encounter; M67.814 Other specified disorders of tendon, left shoulder; M65.9 Synovitis and tenosynovitis, unspecified; M50.322 Other cervical disc degeneration at C5-C6 level; M50.323 Other cervical disc degeneration at C6-C7 level; M89.38 Hypertrophy of bone, other site; M48.02 Spinal stenosis, cervical region; M75.42 Impingement syndrome of left shoulder
CPT/HCPCS: 72141

== ENCOUNTER → 2023-11-30 | Outpatient (CLI) | payer MEDICARE, OTHER ==
[2023-11-30 10:17] LABS: HCT 42.6 % (34.0-46.0); HGB 13.5 gm/dL (11.4-16.0); MCH 28.3 pg (25.0-35.0); MCHC 31.6 g/dL (31.0-37.0); MCV 89.6 fL (80.0-100.0); Mean Platelet Volume 8.4; Platelet Count 266 k/uL (150-450); RBC 4.76 m/uL (3.80-5.40); RDW 14.9 % (11.5-15.5); WBC 6.9 k/uL (3.8-10.6)
[2023-11-30 10:29] LABS: ALT 65 U/L (4-34); AST 43 U/L (14-36); African American GFR (CKD) 87 (>60 ml/min/1.73 sqM); Albumin 4.3 g/dL (3.5-5.0); Albumin/Globulin Ratio 1.5; Alkaline Phosphatase 141 U/L (38-126); Amylase 75 U/L (30-110); Anion Gap 9 mmol/L; Blood Urea Nitrogen 17 mg/dL (7-17); Calcium 9.3 mg/dL (8.4-10.2); Carbon Dioxide 29 mmol/L (22-30); Chloride 103 mmol/L (98-107); Globulin 2.9 g/dL; Glucose 97 mg/dL (74-99); Non-African American GFR(CKD) 75 (>60 ml/min/1.73 sqM); Sodium 141 mmol/L (137-145); Total Bilirubin 0.3 mg/dL (0.2-1.3); Total Protein 7.2 g/dL (6.3-8.2)
--- NOTE | 2023-11-30 11:44 | CT ---
EXAMINATION TYPE: CT abdomen w con CT DLP: 854.50 mGycm, Automated exposure control for dose reduction was used. DATE OF EXAM: 11/30/2023 10:45 AM COMPARISON: CLINICAL INDICATION:Female, 68 years old with history of R10.11 RIGHT UPPER QUADRANT PAIN; RUQ pain TECHNIQUE: Axial CT of the abdomen with IV contrast. Sagittal and coronal reformats were created on a separate workstation. Contrast used:100 mL of Isovue 300 with IV Contrast, (none if empty) Oral contrast used: without Oral Contrast (none if empty) FINDINGS: LOWER CHEST: Mild bibasilar scarring or atelectasis. Heart size upper normal. No pericardial or pleur al effusion. There is a moderate sized hiatal hernia with clips around the hernia and normal location of the gastroesophageal junction. Partially seen bilateral breast implants. ABDOMEN LIVER: Small focus of low-attenuation in the anterior liver along the fissure for ligamentum teres, m ost consistent with focal fat. Otherwise unremarkable liver. GALLBLADDER AND BILE DUCTS: The gallbladder is surgically absent. Biliary tree does not appear pathol ogically dilated. PANCREAS: Unremarkable. SPLEEN: Unremarkable. ADRENAL GLANDS: Unremarkable. KIDNEYS AND URETERS: Kidneys enhance symmetrically. No evidence of hydronephrosis or visible renal ca lculus. The upper ureters are unremarkable. STOMACH AND BOWEL: Stomach and small bowel are nondistended, no evidence of obstruction. Mild to mo derate stool in the visualized colon, no acute abnormality is seen. There is nonvisualization of the appendix, however is likely outside the scope of this study. PERITONEUM/RETROPERITONEUM: No evidence of pneumoperitoneum or free fluid. VASCULATURE: Mild atherosclerotic calcifications are present throughout the abdominal aorta and its b ranches. No evidence of aortic aneurysm. Portal veins are enhancing. Splenic vein is patent. LYMPH NODES: No gross evidence for lymphadenopathy. SOFT TISSUE/ABDOMINAL WALL: Tiny fat-containing umbilical hernia. MUSCULOSKELETAL: Interbody surgical fusion changes at L4-L5. Mild/moderate degenerative disc disease of the rest of the visualized spine, greatest at L5-S1 where disc osteophyte complex results in moder ate canal and neural foraminal stenoses. No acute osseous abnormalities. IMPRESSION: 1. No acute CT abnormality in the abdomen. 2. Status post cholecystectomy, without evidence of pathologic dilatation of the biliary tree. 3. Postop changes in the region of the GE junction and moderate sized hiatal hernia.
== END | disposition home or self-care (01) ==
LOC: RADCTMAIN 09:38
PROVIDERS: ATTEND Family Medicine
DX: K44.9 Diaphragmatic hernia without obstruction or gangrene (principal); R10.11 Right upper quadrant pain; Z98.890 Other specified postprocedural states; Z90.49 Acquired absence of other specified parts of digestive tract
CPT/HCPCS: 80053; 82150; 85027; 74160; 36415; Q9967

== ENCOUNTER → 2023-12-06 | Outpatient (CLI) | payer MEDICARE, OTHER ==
--- NOTE | 2023-12-06 12:23 | XR ---
EXAMINATION TYPE: XR lumbar spine 2 or 3V DATE OF EXAM: 12/06/2023 COMPARISON: None HISTORY: Spinal fusion TECHNIQUE: 3 view lumbar spine FINDINGS: Large metallic disc spacers present at L4-5. There is loss of disc height L5-S1. Remaining disc heights are preserved. Anterior vertebral body spu rring is present L3-4. There are 5 lumbar-type vertebral bodies. The pedicles appear intact. IMPRESSION: 1. Large disc spacer at L4-5. 2. Loss of disc height and degenerative disc changes with vacuum phenomenon at L5-S1.
[2023-12-06 15:26] LABS: ALT 32 U/L (8-44); AST 23 U/L (13-35); Albumin 4.4 g/dL (3.8-4.9); Albumin/Globulin Ratio 1.76 Ratio (1.60-3.17); Alkaline Phosphatase 129 U/L (41-126); BUN/Creat Ratio 18.33 Ratio (12.00-20.00); Blood Urea Nitrogen 16.5 mg/dL (9.0-27.0); Calcium 9.7 mg/dL (8.7-10.3); Carbon Dioxide 23.6 mmol/L (21.6-31.8); Chloride 103 mmol/L (96-109); Globulin 2.5 g/dL (1.6-3.3); Glucose 91 mg/dL (70-110); Potassium 4.4 mmol/L (3.5-5.5); Sodium 141 mmol/L (135-145); Total Bilirubin <0.2 mg/dL (0.3-1.2); Total Protein 6.9 g/dL (6.2-8.2)
[2023-12-06 15:32] LABS: Basophils # (A) 0.06 X 10*3/uL (0.00-0.10); Basophils % (A) 0.8 %; Eosinophils # (A) 0.21 X 10*3/uL (0.04-0.35); Eosinophils % (A) 2.8 %; HCT 39.4 % (37.2-46.3); HGB 12.7 g/dL (12.0-15.0); Lymphocytes # (A) 3.09 X 10*3/uL (0.90-5.00); Lymphocytes % (A) 41.8 %; MCH 28.5 pg (27.0-32.0); MCHC 32.2 g/dL (32.0-37.0); MCV 88.3 FL (80.0-97.0); Mean Platelet Volume 10.3 FL (9.5-12.2); Monocytes # (A) 0.54 X 10*3/uL (0.20-1.00); Monocytes % (A) 7.3 %; NRBC Per 100 WBC 0 X 10*3/uL (0.00-0.01); Neutrophils # (A) 3.42 X 10*3/uL (1.80-7.70); Neutrophils % (A) 46.2 %; Platelet Count 268 X 10*3/uL (140-440); RBC 4.46 X 10*6/uL (4.10-5.20); RDW 14.8 % (11.5-14.5)
== END | disposition home or self-care (01) ==
LOC: LABWHC1 11:07
PROVIDERS: ATTEND Internal Medicine Gastroenterology
DX: M51.37 Other intervertebral disc degeneration, lumbosacral region (principal); G89.29 Other chronic pain; R74.01 Elevation of levels of liver transaminase levels; Z98.1 Arthrodesis status
CPT/HCPCS: 36415; 72100; 80053; 85025

== ENCOUNTER → 2024-04-18 | Outpatient (CLI) | payer MEDICARE, OTHER ==
--- NOTE | 2024-04-18 09:09 | MR ---
EXAMINATION TYPE: MR MRCP DATE OF EXAM: 04/18/2024 7:18 AM CLINICAL INDICATION:Female, 68 years old with history of R10.11 RUQ PAIN; PHH, RUQ pain, elevated LFT s. COMPARISON: CT abdomen 11/30/2023 TECHNIQUE: Multi planar, T2-weighted imaging with and without fat saturation and chemical shift imag ing was performed of the abdomen. Then, heavily T2 weighted imaging (half-Fourier acquisition single- shot turbo spin-echo) was utilized in order to study the biliary system. Maximum intensity projectio n images were reconstructed from the original data of the biliary tree. 3D images were created on a [employer] work station. No Gadolinium given. FINDINGS: Lower Thorax: No evidence for acute process. Bilateral breast implants appear intact. Moderate hiatal hernia. MRCP: * The intrahepatic ducts have a normal appearance. * The common hepatic duct measures 9 mm in size. * The common bile duct at the level of the pancreatic head measures 7 mm in size. * The pancreatic duct is normal. * The gallbladder appears surgically absent. Abdomen: Liver: No evidence for cirrhosis. Signal dropout on chemical shift out of phase imaging. Pancreas: No ductal dilation. No evidence for solid mass. Spleen: Normal for size. Adrenal glands: Unremarkable. Kidneys: No evidence for obstructive uropathy. No suspicious renal masses. Stomach and Bowel: No evidence for bowel wall thickening or evidence for obstruction. Retroperitoneum/Peritoneum: No evidence of pneumoperitoneum or free fluid. Vasculature: No aortic aneurysm. Musculoskeletal: The osseous structures appear intact. Fixation changes at L4-L5 disc space. Lymph Nodes: No gross evidence for lymphadenopathy. Abdominal wall: Unremarkable. IMPRESSION: 1. No evidence to suggest ductal stricture, choledocholithiasis. There is mild biliary ductal dilata tion of the extrahepatic biliary system and central intrahepatic which is normal post cholecystectomy physiology.. 2. Hepatic steatosis. 3. Moderate hiatal hernia. 4. Bilateral breast implants appear intact.
== END | disposition home or self-care (01) ==
LOC: RADMRIMAIN 06:06
PROVIDERS: ATTEND Internal Medicine Gastroenterology
DX: K76.0 Fatty (change of) liver, not elsewhere classified (principal); K83.8 Other specified diseases of biliary tract; K44.9 Diaphragmatic hernia without obstruction or gangrene; R79.89 Other specified abnormal findings of blood chemistry; Z98.82 Breast implant status; Z90.49 Acquired absence of other specified parts of digestive tract
CPT/HCPCS: 74181

== ENCOUNTER → 2024-06-27 | Outpatient (CLI) | payer MEDICARE, OTHER ==
--- NOTE | 2024-07-24 08:59 | MR ---
EXAMINATION TYPE: MR knee LT wo con DATE OF EXAM: 06/27/2024 7:24 AM CLINICAL INDICATION:Female, 68 years old with history of M23.307 OTHER MENISCUS DERANGEMENTS, UNSPECI FIED M; PHH, Left knee pain x 5 wks, no trauma. COMPARISON: Radiographs from [facility] TECHNIQUE: Multi planar, multi sequence imaging was performed of the knee including: Triplane proton density fat-saturated images and T1-weighted imaging. No Gadolinium was given. FINDINGS: Medial meniscus: Intact Medial femorotibial cartilage: Focal cartilage defects are present. Moderate subchondral bone mar row edema. The subchondral bone marrow edema continues into the median knee the and subtly in the lat eral femoral-tibial joint with minimal subchondral edema lateral tibial plateau. Bone marrow change s are also seen in the tibia at the tibia fibular head. The abnormal increased signal, bone marrow e phil extends anterior to posterior in the medial tibial plateau Medial collateral ligament: Intact Lateral meniscus: Intact Lateral femorotibial cartilage: Mild articular cartilage focal defect in the posterior weightbear ing surface with subchondral bone marrow 4.7 mm geode. Lateral collateral ligament complex: Intact Patellofemoral alignment: Normal Patellofemoral cartilage: Severe chondromalacia lateral facet including areas of where cartilage is completely denuded patellar joint surfaces. Subchondral bone marrow changes in the medial and late ral facets; with focal areas of fissuring Extensor mechanism: Intact. Joint/bursal fluid: Small amount of excess joint fluid Muscles/tendons: The patellar tendon, quadriceps tendon, IT band, pes anserinus tendons, semimembrano robin tendon, popliteus tendon, and biceps femoris tendon are all within normal limits. Bone marrow: Normal. Anterior cruciate ligament: Intact. Posterior cruciate ligament: Intact. Soft tissues: Unremarkable. IMPRESSION: No definitive evidence to suggest meniscal tear nor ligamentous injury. Moderately severe chondromalacia patella as well as chondromalacia in the medial femoral tibial joint
== END | disposition home or self-care (01) ==
LOC: RADMRIMAIN 06:44
PROVIDERS: ATTEND Orthopaedic Surgery
DX: M22.42 Chondromalacia patellae, left knee (principal); M23.307 Other meniscus derangements, unspecified meniscus, left knee

== ENCOUNTER → 2024-12-27 | Outpatient (CLI) | payer MEDICARE, OTHER ==
--- NOTE | 2024-12-27 08:37 | MM ---
Reason for Exam: Screening (asymptomatic). Last mammogram was performed 1 year(s) and 3 month(s) ago. Patient History: Menarche at age 9. Patient has no children. Postmenopausal. Patient used Estrogen for 2 years. Patient used Progesterone for 2 years. 08/09/2020, Benign Core Biopsy on the left side. 2011, Bilateral Implants. Risk Values: Cate 5 year model risk: 2.5%. NCI Lifetime model risk: 6.9%. Prior Study Comparison: 03/24/2021 Left Diagnostic Mammogram, [facility]. 07/22/2022 Bilateral MG 3D screen mammo imp/cad., [facility]. 08/30/2023 Bilateral MG 3D screen mammo imp/cad., [facility]. Tissue Density: The breasts are heterogeneously dense, which may obscure small masses. Findings: Analyzed By CAD. Left breast biopsy clip. Bilateral breast implants appear intact. Right breast: There is no suspicious group of microcalcifications or new suspicious mass. Benign-appearing calcifications right breast. Left breast: There is no suspicious group of microcalcifications or new suspicious mass. Benign-appearing calcifications left breast. Overall Assessment: Benign, BI-RAD 2 Management: Screening Mammogram of both breasts in [address] [facility] will attempt to contact patient to return for supplemental views and ultrasound if indicated. Patient should continue monthly self-breast exams. A clinical breast exam by your physician is recommended on an annual basis. This exam should not preclude additional follow-up of suspicious palpable abnormalities. Note on Cate scores and lifetime risk: 1. A Cate score greater than 3% is considered moderate risk. If this is the case, consider specialist referral to assess eligibility for a risk reducing agent. 2. If overall lifetime risk for the development of breast cancer is 20% or higher, the patient may qualify for future screening with alternating mammogram and breast MRI. [facility], , 12/27/2024 8:34 AM. Electronically signed and approved by: Mac Díaz DO
== END | disposition home or self-care (01) ==
LOC: RADMAMWWP 07:07
PROVIDERS: ATTEND Family Medicine
DX: Z12.31 Encounter for screening mammogram for malignant neoplasm of breast (principal); R92.333 Mammographic heterogeneous density, bilateral breasts; Z78.0 Asymptomatic menopausal state
CPT/HCPCS: 77063; 77067